=== PATIENT | female | born 1985 | race Caucasian/White ===

== ENCOUNTER 2018-12-22 16:22 | Inpatient (IN) ==
[2018-12-22] MEDS ORDERED: Ipratropium/Albuterol Neb 3 ML IH ONE (16:46)
--- NOTE | 2018-12-22 16:46 | Emergency Department Note ---
Disposition Clinical Impression: Community acquired pneumonia Qualifiers: Laterality: unspecified laterality Qualified Code(s): J18.9 - Pneumonia, unspecified organism Disposition: Admitted As Inpatient Condition: Good Forms: ED Satisfaction Letter Time of Disposition: 18:05 General Adult HPI - General Chief complaint: ED Shortness of Breath/Dyspnea Stated complaint: SOB Time Seen by Provider: 12/22/18 16:25 Source: EMS Limitations: no limitations Nursing Notes Reviewed: Yes Vital Signs Reviewed: Yes - History of Present Illness HPI Narrative: 33-year-old female smoker with history of asthma who presents the ED with shortness of breath. Patient states the cough has been going on for one week. The cough is productive. Developed shortness of breath last night. Has not changed over the past 24 hours. Rest makes it better movement makes it worse. Patient was seen 2 months ago treated for community-acquired pneumonia. Patient admits mild chest pain. admits chills and feels feverish. Denies weight change, vision change, abdominal pain, vomiting. She does have nausea is small amount of diarrhea this morning. Pain Scale: 6 - Related Data Home Medications Medication Instructions Recorded Confirmed Subutex 8 mg PO TID 06/26/15 02/29/16 clonazePAM [Klonopin] 0.5 mg PO TID 12/12/15 02/29/16 Citalopram [CeleXA] 40 mg PO DAILY 12/23/15 02/29/16 Doxepin [Sinequan] 50 mg PO HS 12/23/15 02/29/16 HydrOXYzine Pamoate [Vistaril] 03/02/18 TraZODone 03/02/18 Previous Rx's Medication Instructions Recorded Albuterol Sulfate [Albuterol 2 puff IH Q6HR PRN #1 hfa.aer.ad 08/16/16 Inhaler] Levofloxacin [Levaquin] 750 mg PO DAILY #5 tablet 08/16/16 Dicyclomine [Bentyl] 10 mg PO QID #40 capsule 07/25/17 metroNIDAZOLE [Metronidazole] 500 mg PO BID 7 Days #14 tablet 03/02/18 Meclizine [Antivert] 25 mg PO PRN PRN #10 tablet 03/21/18 Albuterol Sulfate [Albuterol 2 puff IH Q6H PRN #1 inhaler 09/22/18 Inhaler] Allergies Allergy/AdvReac Type Severity Reaction Status Date / Time buprenorphine [From Suboxone] AdvReac Vomiting Verified 03/20/18 23:40 Naloxone [From Suboxone] AdvReac Vomiting Verified 03/20/18 23:40 quetiapine [From Seroquel] AdvReac Seizure Verified 03/20/18 23:40 Constitutional: Reports: as per HPI Eyes: Reports: as per HPI ENT ED: Reports: as per HPI Cardiovascular: Reports: as per HPI Respiratory: Reports: as per HPI Gastrointestinal: Reports: as per HPI Genitourinary: Denies: urgency, dysuria Musculoskeletal: Denies: myalgia Neurological: Reports: headache Endocrine: Reports: fatigue Past Medical History - Past Medical History Medical history: Reports: asthma, seizures Surgical history: Reports: no surgical history, other Psychiatric history: Reports: anxiety, depression, other [employer] history: Reports: bilateral tubal ligation - Social History Smoking Status: Current every day smoker Smokeless Tobacco Status: No Alcohol use: Reports: none Drug use: Reports: opiates Physical Exam - General Limitations: no limitations General appearance: alert, in no apparent distress - Head Head exam: atraumatic, normocephalic, normal inspection - Eye Eye exam: Present: normal appearance, PERRL, EOMI - ENT ENT exam: normal exam, normal oropharynx, mucous membranes moist - Neck Neck exam: Present: normal inspection, full ROM, trachea midline - Chest Chest inspection: Present: normal inspection, symmetric chest wall rise - Respiratory Respiratory exam: Present: wheezes. Absent: respiratory distress, stridor - Cardiovascular Cardiovascular exam: Present: regular rate, normal rhythm, normal heart sounds - Abdominal Exam Abdominal exam: Present: soft, Non-Tender. Absent: tenderness, distention, guarding, rebound, rigidity - Extremities Exam Extremities exam: Present: normal inspection, full ROM. Absent: tenderness, pedal edema, calf tenderness - Psychiatric Psychiatric exam: Present: normal affect, normal mood - Skin Skin exam: Present: warm, dry, intact Course Vital Signs Temperature 98.2 F 12/22/18 16:26 Pulse Rate 106 12/22/18 16:26 Respiratory Rate 20 12/22/18 16:26 Blood Pressure 125/84 12/22/18 16:26 O2 Sat by Pulse Oximetry 90 12/22/18 16:26 Temperature 98.2 F 12/22/18 16:26 Pulse Rate 91 12/22/18 17:33 Respiratory Rate 20 12/22/18 17:33 Blood Pressure 129/67 12/22/18 17:33 O2 Sat by Pulse Oximetry 98 12/22/18 17:35 Oxygen Delivery Oxygen Delivery Aerosol Mask Medical Decision Making - [facility] Narrative Medical decision making narrative: Labs EKG, troponin, chest x-ray was ordered. For bronchitis versus pneumonia. Follow labs. duoneb was ordered. satting 95 on 2L. multifocal pneumonia noted on x-ray. Patient has not had any recent hospitalizations. Community acquired pneumonia. Start rochphen and zithromax. admit as npatient. Patient is requiring 7 L of O2. dyspnea on exeertion. solumedrol and duonebs orderd Dr. Henry accepts - Lab Data Result diagrams: 12/22/18 17:09 12/22/18 17:09 Lab Results 12/22/18 12/22/18 Range/Units 17:09 17:09 WBC 14.3 H (4.3-11.1) K/mcL RBC 4.26 (3.82-4.97) M/mcL Hgb 11.6 (11.5-15.4) g/dL Hct 36.0 (35.3-44.9) % MCV 84.5 (83.0-100.0) fL MCH 27.2 L (28.0-33.3) pg MCHC 32.2 (31.6-35.5) g/dL RDW 13.4 (11.5-14.5) % Plt Count 252 (140-400) K/mcL MPV 8.6 L (9.4-12.4) fL Immature Gran % 0.4 (0-4) % Seg Neutrophils % 81.1 % Lymphocytes % 13.8 % Monocytes % 4.1 % Eosinophils % 0.5 % Basophils % 0.1 % Neutrophils # 11.6 H (1.6-8.9) K/mcL Lymphocytes # 2.0 (0.6-4.6) K/mcL Monocytes # 0.6 (0.0-1.3) K/mcL Eosinophils # 0.1 (0.0-0.6) K/mcL Basophils # 0.0 (0.0-0.2) K/mcL Sodium 136 (136-145) mEq/L Potassium 4.0 (3.5-5.1) mEq/L Chloride 104 (98-107) mEq/L Carbon Dioxide 24 (23-29) mEq/L BUN 7 (6-20) mg/dL Creatinine 0.72 (0.60-1.20) mg/dL Est GFR ( Amer) > 60 (> 60) Est GFR (Non-Af Amer) > 60 (> 60) BUN/Creatinine Ratio 10 (6-26) Glucose 118 H (70-105) mg/dL Calculated Osmolality 281 (280-300) Calcium 9.5 (8.6-10.3) mg/dL Troponin I < 0.03 (< 0.04) ng/mL
[2018-12-22 17:24] LABS: Basophils % 0.1 %; Eosinophils # 0.1 K/mcL (0.0-0.6); Eosinophils % 0.5 %; Hemoglobin 11.6 g/dL (11.5-15.4); Immature Granulocytes % 0.4 % (0-4); Lymphocytes % 13.8 %; Mean Corpuscular HGB Conc 32.2 g/dL (31.6-35.5); Mean Corpuscular Hemoglobin 27.2 pg (28.0-33.3); Mean Corpuscular Volume 84.5 fL (83.0-100.0); Mean Platelet Volume 8.6 fL (9.4-12.4); Monocytes # 0.6 K/mcL (0.0-1.3); Monocytes % 4.1 %; Neutrophils # 11.6 K/mcL (1.6-8.9); Platelet Count 252 K/mcL (140-400); Red Blood Count 4.26 M/mcL (3.82-4.97); Red Cell Distribution Width 13.4 % (11.5-14.5); Segmented Neutrophils % 81.1 %
[2018-12-22 17:44] LABS: BUN/Creatinine Ratio 10 (6-26); Blood Urea Nitrogen 7 mg/dL (6-20); Calcium 9.5 mg/dL (8.6-10.3); Carbon Dioxide 24 mEq/L (23-29); Chloride 104 mEq/L (98-107); Glucose 118 mg/dL (70-105); Osmolality,Calculated 281 (280-300); Sodium 136 mEq/L (136-145); eGFR For Non-African Americans > 60 (> 60)
[2018-12-22 17:45] LABS: Troponin I < 0.03 ng/mL (< 0.04)
[2018-12-22] MEDS ORDERED: methylPREDNISolone 125 MG/2 ML VIAL IVP ONE (18:12)
[2018-12-22] MEDS ORDERED: Naloxone 0.4 MG/ML INJ IVP PRN (18:14)
[2018-12-22] MEDS ORDERED: Ipratropium/Albuterol Neb 3 ML IH SCH (18:15)
--- NOTE | 2018-12-22 18:19 | Emergency Department Note ---
Disposition Clinical Impression: Community acquired pneumonia Qualifiers: Laterality: unspecified laterality Qualified Code(s): J18.9 - Pneumonia, unspecified organism Disposition: Admitted As Inpatient Condition: Good Forms: ED Satisfaction Letter General Adult HPI - General Chief complaint: ED Shortness of Breath/Dyspnea Stated complaint: SOB Time Seen by Provider: 12/22/18 16:25 Source: EMS Limitations: no limitations - History of Present Illness Pain Scale: 6 - Related Data Home Medications Medication Instructions Recorded Confirmed Subutex 8 mg PO TID 06/26/15 02/29/16 clonazePAM [Klonopin] 0.5 mg PO TID 12/12/15 02/29/16 Citalopram [CeleXA] 40 mg PO DAILY 12/23/15 02/29/16 Doxepin [Sinequan] 50 mg PO HS 12/23/15 02/29/16 HydrOXYzine Pamoate [Vistaril] 03/02/18 TraZODone 03/02/18 Previous Rx's Medication Instructions Recorded Albuterol Sulfate [Albuterol 2 puff IH Q6HR PRN #1 hfa.aer.ad 08/16/16 Inhaler] Levofloxacin [Levaquin] 750 mg PO DAILY #5 tablet 08/16/16 Dicyclomine [Bentyl] 10 mg PO QID #40 capsule 07/25/17 metroNIDAZOLE [Metronidazole] 500 mg PO BID 7 Days #14 tablet 03/02/18 Meclizine [Antivert] 25 mg PO PRN PRN #10 tablet 03/21/18 Albuterol Sulfate [Albuterol 2 puff IH Q6H PRN #1 inhaler 09/22/18 Inhaler] Allergies Allergy/AdvReac Type Severity Reaction Status Date / Time buprenorphine [From Suboxone] AdvReac Vomiting Verified 03/20/18 23:40 Naloxone [From Suboxone] AdvReac Vomiting Verified 03/20/18 23:40 quetiapine [From Seroquel] AdvReac Seizure Verified 03/20/18 23:40 Constitutional: Reports: as per HPI Eyes: Reports: as per HPI ENT ED: Reports: as per HPI Cardiovascular: Reports: as per HPI Respiratory: Reports: as per HPI Gastrointestinal: Reports: as per HPI Genitourinary: Denies: urgency, dysuria Musculoskeletal: Denies: myalgia Neurological: Reports: headache Endocrine: Reports: fatigue Past Medical History - Past Medical History Medical history: Reports: asthma, seizures Surgical history: Reports: no surgical history, other Psychiatric history: Reports: anxiety, depression, other [employer]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 - Social History Smoking Status: Current every day smoker Smokeless Tobacco Status: No Alcohol use: Reports: none Drug use: Reports: opiates Physical Exam - General Limitations: no limitations General appearance: alert, in no apparent distress Course Vital Signs Temperature 98.2 F 12/22/18 16:26 Pulse Rate 106 12/22/18 16:26 Respiratory Rate 20 12/22/18 16:26 Blood Pressure 125/84 12/22/18 16:26 O2 Sat by Pulse Oximetry 90 12/22/18 16:26 Temperature 98.2 F 12/22/18 16:26 Pulse Rate 91 12/22/18 17:33 Respiratory Rate 20 12/22/18 17:33 Blood Pressure 129/67 12/22/18 17:33 O2 Sat by Pulse Oximetry 98 12/22/18 17:35 Oxygen Delivery Oxygen Delivery Aerosol Mask Medical Decision Making - Lab Data Result diagrams: 12/22/18 17:09 12/22/18 17:09 Lab Results 12/22/18 12/22/18 Range/Units 17:09 17:09 WBC 14.3 H (4.3-11.1) K/mcL RBC 4.26 (3.82-4.97) M/mcL Hgb 11.6 (11.5-15.4) g/dL Hct 36.0 (35.3-44.9) % MCV 84.5 (83.0-100.0) fL MCH 27.2 L (28.0-33.3) pg MCHC 32.2 (31.6-35.5) g/dL RDW 13.4 (11.5-14.5) % Plt Count 252 (140-400) K/mcL MPV 8.6 L (9.4-12.4) fL Immature Gran % 0.4 (0-4) % Seg Neutrophils % 81.1 % Lymphocytes % 13.8 % Monocytes % 4.1 % Eosinophils % 0.5 % Basophils % 0.1 % Neutrophils # 11.6 H (1.6-8.9) K/mcL Lymphocytes # 2.0 (0.6-4.6) K/mcL Monocytes # 0.6 (0.0-1.3) K/mcL Eosinophils # 0.1 (0.0-0.6) K/mcL Basophils # 0.0 (0.0-0.2) K/mcL Sodium 136 (136-145) mEq/L Potassium 4.0 (3.5-5.1) mEq/L Chloride 104 (98-107) mEq/L Carbon Dioxide 24 (23-29) mEq/L BUN 7 (6-20) mg/dL Creatinine 0.72 (0.60-1.20) mg/dL Est GFR ( Amer) > 60 (> 60) Est GFR (Non-Af Amer) > 60 (> 60) BUN/Creatinine Ratio 10 (6-26) Glucose 118 H (70-105) mg/dL Calculated Osmolality 281 (280-300) Calcium 9.5 (8.6-10.3) mg/dL Troponin I < 0.03 (< 0.04) ng/mL Attestation Statement - Attestation Attestation: I examined this patient and my medical decision-making was reviewed with the Resident Physician. I agree with the documented findings, disposition and treatment plan as described except to the extent set forth below. 33 year old female presnts to the ED with complanits of dyspnea and has a history of asthma and grimes snot wear supplemental oxygen at home. Ptinet states that she has been coughing and had pnuemonia in august and that it feels better. PAtine is now requiring 2LNC and appearsto have multifocal pneumonia. We will start IV ABX and then admit to medicine.
[2018-12-22 18:40] LABS: ABG Base Excess 0 mEq/L (-2 to 3); ABG HCO3 24 mEq/L (21-27); ABG Oxygen Saturation 92 % (95-98); ABG PCO2 35 mmHg (35-45); ABG PH 7.44 pH Units (7.32-7.45); ABG PO2 60 mmHg (85-104); ABG TCO2 25 mEq/L (20-26)
--- NOTE | 2018-12-22 18:55 | Internal Med History&Physical ---
Date of Encounter: 12/22/18 Time of Encounter: 18:00 Internal Medicine - H&P: HPI Chief complaint: Coughing, shortness of breath and wheezing for 1 week duration History of present illness: Ms. Nguyen is a 33 year old female with pmh of asthma presenting with complaints of coughing , shortness of breath and wheezing for 1 week duration. Patient says she suddenly began to feel short of breath particularly with exertion about a week ago, and symptoms progressed to include wheezing and cough productive of brown phlegm in the last 3 days. She admits to occasional fevers and chills. Denies any nausea, vomiting or abdominal pain. she says she used her inhalers at home with no relief. With continued worsening of her respiratory symptoms she decided to come in to the ER. In the Er, she was given antibiotics and a breathing treatment. Chest xray showed multifocal pneumonia and she is being admitted for further management Past Med Surg Social Fam HX - Past Medical History Medical history: asthma, seizures Additional medical history: hep c, history of IVDU Psychiatric history: anxiety, depression, other - Past Surgical History Surgical History: no surgical history, other Additional surgical history: tubal ligation - Social History Smoking Status: Current every day smoker Smokeless Tobacco Status: No Alcohol use: none Drug use: opiates Internal Medicine - H&P: Meds Subutex 8 mg PO TID 06/26/15 [History] HydrOXYzine Pamoate [Vistaril] 03/02/18 [History] Albuterol Sulfate [Albuterol Inhaler] 2 puff IH Q6H PRN #1 inhaler 09/22/18 [Rx] Allergy/AdvReac Type Severity Reaction Status Date / Time buprenorphine [From Suboxone] AdvReac Vomiting Verified 03/20/18 23:40 Naloxone [From Suboxone] AdvReac Vomiting Verified 03/20/18 23:40 quetiapine [From Seroquel] AdvReac Seizure Verified 03/20/18 23:40 All Systems PM: A 10-system review of systems was performed and is negative for pertinent findings except as documented above in the HPI. - Constitutional Constitutional: no chills, no fever(s), no night sweats - EENT Eyes: no change in vision, no discharge, no pain, no photophobia Ears: no ear discharge, no ear pain, no tinnitus Nose, mouth and throat: no dysphagia, no nasal discharge, no neck pain, no sore throat - Cardiovascular Cardiovascular ROS IM: dyspnea, no chest pain, no diaphoresis, no lightheadedness, no palpitations, no syncope - Respiratory Respiratory: cough, dyspnea, wheezing, no excessive phlegm production - Gastrointestinal Gastrointestinal: no abdominal pain, no diarrhea, no hematemesis, no hematochezia, no melena, no nausea, no vomiting - Genitourinary Genitourinary: no change in urinary stream, no dysuria, no flank pain, no hematuria - Musculoskeletal Musculoskeletal ROS IM: no numbness, no tingling - Integumentary Integumentary IM: no rash, no unusual bruising - Neurological Neurological ROS: no confusion, no convulsions, no focal weakness, no numbness, no tingling, no tremor(s) - Hematologic/Lymphatic Hematologic/Lymphatic: no easy bruising - Constitutional Vitals: Temp Pulse Resp BP Pulse Ox 98.2 F 91 20 129/67 98 12/22/18 16:26 12/22/18 17:33 12/22/18 17:33 12/22/18 17:33 12/22/18 17:35 Exam: mild respiratory distress - Head Head exam: Present: atraumatic, normocephalic - Eye Eye exam: Present: PERRL, conjuntiva pink, sclera anicteric Pupils: Present: PERRL - Neck Neck exam general surgery: Present: supple, trachea midline. Absent: lymphadenopathy - Respiratory Respiratory exam: Present: wheezes. Absent: accessory muscle use, rales, rhonchi - Cardiovascular Cardiovascular exam: Present: RRR, +S1, +S2. Absent: diastolic murmur, gallop, rubs, systolic murmur - GI/Abdominal GI/Abdominal exam: Present: normal bowel sounds, soft, no peritoneal signs. Absent: distended, tenderness - Extremities Exam Extremities exam: Present: warm, radial pulses palpable and symmetrical. Absent: calf tenderness, cyanotic, pedal edema - Neurological Exam Neurological exam: Present: CN II-XII intact, oriented X3, no focal deficits. Absent: pronater drift, facial droop, speech deficit - Skin Skin exam: Present: dry, intact Internal Med - H&P Results - Labs CBC & Chem 7: 12/22/18 17:09 12/22/18 17:09 Labs: Short CBC 12/22/18 Range/Units 17:09 WBC 14.3 H (4.3-11.1) K/mcL Hgb 11.6 (11.5-15.4) g/dL Hct 36.0 (35.3-44.9) % Plt Count 252 (140-400) K/mcL Neutrophils # 11.6 H (1.6-8.9) K/mcL BMP 12/22/18 17:09 Sodium 136 Potassium 4.0 Chloride 104 Carbon Dioxide 24 BUN 7 Creatinine 0.72 Glucose 118 H Calcium 9.5 Cardiac Enzymes 12/22/18 Range/Units 17:09 Troponin I < 0.03 (< 0.04) ng/mL - ABG Interpretation ABG results: 12/22/18 18:37 ABG pH 7.44 ABG pCO2 35 ABG pO2 60 L ABG HCO3 24 ABG Total CO2 25 ABG O2 Saturation 92 L ABG Base Excess 0 - Impressions ITS Impressions Chest X-Ray 12/22/18 16:41 IMPRESSION: Bilateral parahilar airspace disease suggesting a multifocal pneumonia D/ / Cristian Khan MD / Cristian Khan MD Interpreting Provider: Cristian Khan MD - Assessment and plan (1) Sepsis Current Visit: Yes Status: Acute Assessment and plan: Pt comes in with multifocal pneumonia and a WBC of 14 with tachycardia Will obtain blood cultures, urine legionella and streptococcal antigen. Start on ceftriaxone and azithromycin Qualifiers: Qualified Code(s): A41.9 - Sepsis, unspecified organism (2) Multifocal pneumonia Current Visit: Yes Status: Acute Assessment and plan: Start on ceftriaxone and azithromycin (3) Acute asthma exacerbation Current Visit: Yes Status: Acute Assessment and plan: Pt has severe asthma exacerbation with wheezing and oxygen sats of 90% on arrival Start on round the clock nebs and solumedrol Qualifiers: Asthma severity: mild Asthma persistence: intermittent Qualified Code(s): J45.21 - Mild intermittent asthma with (acute) exacerbation (4) DVT prophylaxis Current Visit: Yes Status: Acute Assessment and plan: SCDs - Time Spent With Patient Total time spent is greater than 50% in coordination of care (as documented) at patient's floor/unit and/or counseling patient:
[2018-12-22] MEDS ORDERED: Azithromycin 500 MG in D5% in Water 250 ML IVPB SCH (19:00)
[2018-12-22] MEDS ORDERED: cefTRIAXone 1,000 MG in Water for inj. (sterile) 20 ML 10 ML IVP SCH (19:00)
[2018-12-22] MEDS: Ipratropium/Albuterol Neb 3 ML IH SCH (20:14)
[2018-12-22] MEDS: Budesonide/Formoterol 80/4.5 MDI IH SCH (20:15)
[2018-12-22] MEDS: Azithromycin 500 MG in D5% in Water 250 ML IVPB SCH (22:00)
[2018-12-22] MEDS: cefTRIAXone 1,000 MG in Water for inj. (sterile) 20 ML 10 ML IVP SCH (22:00)
[2018-12-22] MEDS: clonazePAM 0.5 MG TABLET PO SCH (22:01)
[2018-12-23] MEDS: Ipratropium/Albuterol Neb 3 ML IH SCH ×6 (00:19→20:01)
[2018-12-23] MEDS: Budesonide/Formoterol 80/4.5 MDI IH SCH ×2 (07:41→20:01)
[2018-12-23 08:23] LABS: Basophils % 0.1 %; Hematocrit 41.6 % (35.3-44.9); Hemoglobin 12.7 g/dL (11.5-15.4); Immature Granulocytes % 0.5 % (0-4); Lymphocytes # 1.1 K/mcL (0.6-4.6); Lymphocytes % 7.5 %; Mean Corpuscular HGB Conc 30.5 g/dL (31.6-35.5); Mean Corpuscular Hemoglobin 27.1 pg (28.0-33.3); Mean Corpuscular Volume 88.7 fL (83.0-100.0); Mean Platelet Volume 9.9 fL (9.4-12.4); Monocytes # 0.3 K/mcL (0.0-1.3); Monocytes % 1.7 %; Platelet Count 186 K/mcL (140-400); Red Blood Count 4.69 M/mcL (3.82-4.97); Red Cell Distribution Width 13.5 % (11.5-14.5); Segmented Neutrophils % 90.2 %
[2018-12-23 08:27] LABS: Neutrophils # 13.4 K/mcL (1.6-8.9)
--- NOTE | 2018-12-23 09:08 | Internal Med Progress Note ---
Hospitalist Progress Note - Encounter Date of Encounter: 12/23/18 Time of Encounter: 11:00 - Subjective Interval History: Patient is a 33-year-old female with past medical history significant for asthma who presented with shortness of breath and found to have acute hypoxic respiratory failure with asthma exacerbation secondary to multifocal pneumonia Patient was also septic on admission which has now resolved. Patient this morning still requiring 4 L of nasal cannula oxygenation - Exam Vitals: Temp Pulse Resp BP Pulse Ox 98.3 F 60 16 121/69 97 12/23/18 07:15 12/23/18 07:15 12/23/18 07:41 12/23/18 07:15 12/23/18 07:41 Exam: Gen.: Nonacute distress, alert and oriented 3 ENT: Mucosal membranes moist Respiratory: Bilateral expiratory wheezes with decreased air flow Cardiovascular: Normal S1 and S2 regular rate rhythm no murmurs rubs or gallops Abdomen: Soft, nontender and nondistended with positive bowel sounds Extremities: No lower extremity edema Skin: Normal color - Assessment and Plan (1) Acute respiratory failure with hypoxia Current Visit: Yes Status: Acute Assessment and Plan: Patient found to have acute hypoxic respiratory failure with a ABG that revealed a PaO2 of 60 on admission Secondary due to multifocal pneumonia with asthma exacerbation; management as below Patient requiring 4 L of oxygenation this morning Will wean O2 as tolerates (2) Multifocal pneumonia Current Visit: Yes Status: Acute Assessment and Plan: Chest x-ray showed bibasilar perihilar airspace disease suggestive of multifocal pneumonia Leukocytosis without much improvement this morning the patient is on steroids Respiratory panel pending Continue day 2 of IV ceftriaxone/azithromycin (3) Acute asthma exacerbation Current Visit: Yes Status: Acute Assessment and Plan: Continue dual nebs and IV Solu-Medrol Also continuing home meds of Symbicort (4) Sepsis Current Visit: Yes Status: Resolved Assessment and Plan: Resolved Patient no longer tachycardic although with leukocytosis in the setting of steroid treatment Continue to monitor (5) Mood disorder Current Visit: Yes Status: Acute Assessment and Plan: Continue home medications DVT Prophylaxis: SCDs - Time Spent with Patient Total time spent is greater than 50% in coordination of care (as documented) at patient's floor/unit and/or counseling patient: Internal Medicine: Result - Labs CBC & Chem 7: 12/23/18 08:13 12/22/18 17:09 Labs: Short CBC 12/22/18 12/23/18 Range/Units 17:09 08:13 WBC 14.3 H 14.9 H (4.3-11.1) K/mcL Hgb 11.6 12.7 (11.5-15.4) g/dL Hct 36.0 41.6 (35.3-44.9) % Plt Count 252 186 (140-400) K/mcL Neutrophils # 11.6 H 13.4 H (1.6-8.9) K/mcL BMP 12/22/18 17:09 Sodium 136 Potassium 4.0 Chloride 104 Carbon Dioxide 24 BUN 7 Creatinine 0.72 Glucose 118 H Calcium 9.5 Cardiac Enzymes 12/22/18 Range/Units 17:09 Troponin I < 0.03 (< 0.04) ng/mL - ABG Interpretation ABG results: ABG ABG pH 7.44 pH Units (7.32-7.45) 12/22/18 18:37 ABG pCO2 35 mmHg (35-45) 12/22/18 18:37 ABG pO2 60 mmHg (85-104) L 12/22/18 18:37 ABG O2 Saturation 92 % (95-98) L 12/22/18 18:37 - Impressions Impressions Chest X-Ray 12/22/18 16:41 IMPRESSION: Bilateral parahilar airspace disease suggesting a multifocal pneumonia D/ / Cristian Khan MD / Cristian Khan MD Interpreting Provider: Cristian Khan MD Consult Discharge Plan - Plan Referrals: NONE,PCP [Primary Care Provider] - (3) Acute asthma exacerbation Qualifiers: Asthma severity: mild Asthma persistence: intermittent Qualified Code(s): J45.21 - Mild intermittent asthma with (acute) exacerbation (4) Sepsis Qualifiers: Qualified Code(s): A41.9 - Sepsis, unspecified organism
[2018-12-23] MEDS: clonazePAM 0.5 MG TABLET PO SCH ×3 (09:10→20:18)
[2018-12-23] MEDS: MethylPREDNISolone 40 MG/ML VIAL IVP SCH ×3 (09:11→17:29)
[2018-12-23 17:15] LABS: Acinetobacter baumannii by PCR Not Detected (Not Detect); Candida albicans by PCR Not Detected (Not Detect); Candida glabrata by PCR Not Detected (Not Detect); Candida krusei by PCR Not Detected (Not Detect); Candida parapsilosis by PCR Not Detected (Not Detect); Candida tropicalis by PCR Not Detected (Not Detect); Enterobacter cloacae Cmplx PCR Not Detected (Not Detect); Enterobacteriaceae by PCR Not Detected (Not Detect); Enterococcus by PCR Not Detected (Not Detect); Escherichia coli by PCR Not Detected (Not Detect); Klebsiella oxytoca by PCR Not Detected (Not Detect); Klebsiella pneumoniae by PCR Not Detected (Not Detect); Proteus by PCR Not Detected (Not Detect); Pseudomonas aeruginosa by PCR Not Detected (Not Detect); Serratia marcescens by PCR Not Detected (Not Detect); Staphylococcus aureus by PCR Not Detected (Not Detect); Staphylococcus by PCR Not Detected (Not Detect); Streptococcus agalactiae(B)PCR Not Detected (Not Detect); Streptococcus by PCR DETECTED (Not Detect); Streptococcus pneumoniae PCR Not Detected (Not Detect); Streptococcus pyogenes (A) PCR Not Detected (Not Detect); blaKPC Carbapenem-Resist Gene Not Detected (Not Detect); vanA/B Vancomycin-Resist Genes Not Detected (Not Detect)
[2018-12-23] MEDS ORDERED: hydrOXYzine pamoate 25 MG CAPSULE PO PRN (17:20)
[2018-12-23] MEDS: Ondansetron 4 MG/2 ML VIAL IVP PRN (17:29)
[2018-12-23 18:01] LABS: BUN/Creatinine Ratio 20 (6-26); Blood Urea Nitrogen 14 mg/dL (6-20); Calcium 9.1 mg/dL (8.6-10.3); Carbon Dioxide 21 mEq/L (23-29); Chloride 107 mEq/L (98-107); Glucose 136 mg/dL (70-105); Magnesium 2.2 mg/dL (1.6-2.6); Osmolality,Calculated 285 (280-300); Phosphorous 3.8 mg/dL (2.7-4.5); Potassium 4.7 mEq/L (3.5-5.1); Sodium 136 mEq/L (136-145); eGFR For Non-African Americans > 60 (> 60)
[2018-12-23] MEDS: Acetaminophen 325 MG TABLET PO PRN (19:00)
[2018-12-23] MEDS: cefTRIAXone 1,000 MG in Water for inj. (sterile) 20 ML 10 ML IVP SCH (19:01)
[2018-12-23] MEDS: Azithromycin 500 MG in D5% in Water 250 ML IVPB SCH (19:02)
[2018-12-23] MEDS: *HR* Buprenorphine HCl 8 MG TAB.SUBL SL SCH (20:18)
[2018-12-23 20:57] LABS: Amphetamine Screen,Urine Negative ng/mL (Cutoff=1000); Barbiturate Screen,Urine Negative ng/mL (Cutoff=200); Benzodiazepines Screen,Urine Negative ng/mL (Cutoff=200); Cannabinoid Screen,Urine Negative ng/mL (Cutoff = 50); Cocaine Screen,Urine Negative ng/mL (Cutoff= 300); Opiate Screen,Urine Negative ng/mL (Cutoff=300); Phencyclidine Screen,Urine Negative ng/mL (Cutoff=25)
[2018-12-24] MEDS: MethylPREDNISolone 40 MG/ML VIAL IVP SCH ×4 (00:19→23:47)
[2018-12-24] MEDS: Ipratropium/Albuterol Neb 3 ML IH SCH ×7 (00:30→23:55)
[2018-12-24] MEDS: Acetaminophen 325 MG TABLET PO PRN (05:07)
[2018-12-24] MEDS: Budesonide/Formoterol 80/4.5 MDI IH SCH ×2 (07:39→20:48)
--- NOTE | 2018-12-24 08:01 | Internal Med Progress Note ---
Hospitalist Progress Note - Encounter Date of Encounter: 12/24/18 Time of Encounter: 11:00 - Subjective Interval History: Patient is a 33-year-old female with past medical history significant for asthma who presented with shortness of breath and found to have acute hypoxic respiratory failure with asthma exacerbation secondary to multifocal pneumonia Patient was also septic on admission which has now resolved. Patient was requiring 4 L of nasal cannula yesterday but today requiring 2 L. Patient was also found to have bacteremia with Streptococcus and was found to have Streptococcus on respiratory panel - Exam Vitals: Temp Pulse Resp BP Pulse Ox 98.1 F 80 16 108/63 94 12/24/18 07:08 12/24/18 07:08 12/24/18 07:41 12/24/18 07:08 12/24/18 07:41 Exam: Gen.: Nonacute distress, alert and oriented 3 ENT: Mucosal membranes moist Respiratory: Bilateral expiratory wheezes with decreased air flow Cardiovascular: Normal S1 and S2 regular rate rhythm no murmurs rubs or gallops Abdomen: Soft, nontender and nondistended with positive bowel sounds Extremities: No lower extremity edema Skin: Normal color - Assessment and Plan (1) Streptococcal pneumonia Current Visit: Yes Status: Acute Assessment and Plan: Chest x-ray showed bibasilar perihilar airspace disease suggestive of multifocal pneumonia She found to have Streptococcus on respiratory panel Continue day 3 of IV ceftriaxone/azithromycin for multifocal streptococcal pneumonia (2) Streptococcal bacteremia Current Visit: Yes Status: Acute Assessment and Plan: Patient's blood cultures positive for Streptococcus canary to streptococcal pneumonia above Management as above Echocardiogram has been ordered and we will repeat blood cultures. (3) Acute respiratory failure with hypoxia Current Visit: Yes Status: Acute Assessment and Plan: Secondary to streptococcus pneumonia Patient requiring less oxygenation this morning at 2 L from 4 L yesterday Will continue to wean O2 as tolerates (4) Acute asthma exacerbation Current Visit: Yes Status: Acute Assessment and Plan: Asthma exacerbation secondary to the above Continue dual nebs and IV Solu-Medrol Also continuing home meds of Symbicort (5) Sepsis Current Visit: Yes Status: Resolved Assessment and Plan: Resolved Patient no longer tachycardic although with leukocytosis in the setting of steroid treatment Continue to monitor (6) Mood disorder Current Visit: Yes Status: Acute Assessment and Plan: Continue home medications - Time Spent with Patient Total time spent is greater than 50% in coordination of care (as documented) at patient's floor/unit and/or counseling patient: Internal Medicine: Result - Labs CBC & Chem 7: 12/24/18 09:03 12/24/18 09:03 Labs: Short CBC 12/23/18 Range/Units 08:13 WBC 14.9 H (4.3-11.1) K/mcL Hgb 12.7 (11.5-15.4) g/dL Hct 41.6 (35.3-44.9) % Plt Count 186 (140-400) K/mcL Neutrophils # 13.4 H (1.6-8.9) K/mcL BMP 12/23/18 17:26 Sodium 136 Potassium 4.7 Chloride 107 Carbon Dioxide 21 L BUN 14 Creatinine 0.69 Glucose 136 H Calcium 9.1 - ABG Interpretation ABG results: ABG ABG pH 7.44 pH Units (7.32-7.45) 12/22/18 18:37 ABG pCO2 35 mmHg (35-45) 12/22/18 18:37 ABG pO2 60 mmHg (85-104) L 12/22/18 18:37 ABG O2 Saturation 92 % (95-98) L 12/22/18 18:37 Consult Discharge Plan - Plan Referrals: NONE,PCP [Primary Care Provider] - (4) Acute asthma exacerbation Qualifiers: Asthma severity: mild Asthma persistence: intermittent Qualified Code(s): J45.21 - Mild intermittent asthma with (acute) exacerbation (5) Sepsis Qualifiers: Qualified Code(s): A41.9 - Sepsis, unspecified organism
[2018-12-24] MEDS: clonazePAM 0.5 MG TABLET PO SCH ×3 (08:33→20:17)
[2018-12-24] MEDS: *HR* Buprenorphine HCl 8 MG TAB.SUBL SL SCH ×2 (08:33→20:17)
[2018-12-24 09:46] LABS: Basophils % 0.1 %; Hematocrit 33.8 % (35.3-44.9); Immature Granulocytes % 1.1 % (0-4); Lymphocytes # 2.1 K/mcL (0.6-4.6); Lymphocytes % 9.5 %; Mean Corpuscular Hemoglobin 27.2 pg (28.0-33.3); Mean Corpuscular Volume 85.1 fL (83.0-100.0); Monocytes % 4.4 %; Neutrophils # 18.5 K/mcL (1.6-8.9); Platelet Count 321 K/mcL (140-400); Red Blood Count 3.97 M/mcL (3.82-4.97); Red Cell Distribution Width 13.7 % (11.5-14.5); Segmented Neutrophils % 84.9 %
[2018-12-24 10:07] LABS: BUN/Creatinine Ratio 28 (6-26); Blood Urea Nitrogen 19 mg/dL (6-20); Carbon Dioxide 21 mEq/L (23-29); Chloride 105 mEq/L (98-107); Glucose 127 mg/dL (70-105); Osmolality,Calculated 286 (280-300); Potassium 4.2 mEq/L (3.5-5.1); Sodium 136 mEq/L (136-145); eGFR For Non-African Americans > 60 (> 60)
[2018-12-24 10:34] LABS: Hemoglobin 10.8 g/dL (11.5-15.4)
[2018-12-24 10:52] LABS: Adenovirus Not Detected (Not Detect); Bordetella Pertussis Not Detected (Not Detect); Chlamydophila pneumoniae Not Detected (Not Detect); Coronavirus 229E Not Detected (Not Detect); Coronavirus HKU1 Not Detected (Not Detect); Coronavirus NL63 Not Detected (Not Detect); Coronavirus OC43 Not Detected (Not Detect); Human Metapneumovirus Not Detected (Not Detect); Human Rhinovirus/Enterovirus Not Detected (Not Detect); Influenza A Subtype 2009 H1 Not Detected (Not Detect); Influenza A Untypeable Not Detected (Not Detect); Influenza B Not Detected (Not Detect); Mycoplasma pneumoniae Not Detected (Not Detect); Parainfluenza Virus 1 Not Detected (Not Detect); Parainfluenza Virus 2 Not Detected (Not Detect); Parainfluenza Virus 3 Not Detected (Not Detect); Parainfluenza Virus 4 Not Detected (Not Detect); Respiratory Syncytial Virus Not Detected (Not Detect)
[2018-12-24] MEDS: Ondansetron 4 MG/2 ML VIAL IVP PRN (20:16)
[2018-12-24] MEDS: Azithromycin 500 MG in D5% in Water 250 ML IVPB SCH (20:17)
[2018-12-24] MEDS: cefTRIAXone 2,000 MG in Water for inj. (sterile) 20 ML 20 ML IVP SCH (20:18)
[2018-12-24] MEDS: Nicotine 21 MG PATCH.TD24 TD SCH (20:19)
[2018-12-25] MEDS: Preparation H Ointment 30 GM TUBE RC SCH ×3 (02:59→20:04)
[2018-12-25] MEDS: Ipratropium/Albuterol Neb 3 ML IH SCH ×6 (03:55→23:44)
[2018-12-25] MEDS: Budesonide/Formoterol 80/4.5 MDI IH SCH ×2 (07:53→20:38)
[2018-12-25] MEDS: MethylPREDNISolone 40 MG/ML VIAL IVP SCH ×3 (08:35→23:00)
[2018-12-25] MEDS: clonazePAM 0.5 MG TABLET PO SCH ×3 (08:35→20:03)
[2018-12-25] MEDS: *HR* Buprenorphine HCl 8 MG TAB.SUBL SL SCH ×2 (08:35→20:02)
[2018-12-25] MEDS: Nicotine 21 MG PATCH.TD24 TD SCH (08:37)
[2018-12-25 11:18] LABS: Basophils % 0.1 %; Hematocrit 34.2 % (35.3-44.9); Hemoglobin 10.9 g/dL (11.5-15.4); Immature Granulocytes % 1.3 % (0-4); Lymphocytes # 2.2 K/mcL (0.6-4.6); Lymphocytes % 12.4 %; Mean Corpuscular HGB Conc 31.9 g/dL (31.6-35.5); Mean Corpuscular Hemoglobin 27.5 pg (28.0-33.3); Mean Corpuscular Volume 86.1 fL (83.0-100.0); Mean Platelet Volume 8.6 fL (9.4-12.4); Monocytes # 0.6 K/mcL (0.0-1.3); Monocytes % 3.6 %; Neutrophils # 14.4 K/mcL (1.6-8.9); Platelet Count 302 K/mcL (140-400); Red Blood Count 3.97 M/mcL (3.82-4.97); Red Cell Distribution Width 13.4 % (11.5-14.5); Segmented Neutrophils % 82.6 %
--- NOTE | 2018-12-25 11:23 | Internal Med Progress Note ---
Hospitalist Progress Note - Encounter Date of Encounter: 12/25/18 Time of Encounter: 11:00 - Subjective Interval History: Patient is a 33-year-old female with past medical history significant for asthma who presented with shortness of breath and found to have acute hypoxic respiratory failure with asthma exacerbation secondary to multifocal pneumonia Patient was also septic on admission which has now resolved. Patient was requiring 4 L of nasal cannula on 12/23/18 and has required 2 L of nasal cannula for the last 2 days Patient was also found to have bacteremia with Streptococcus and was found to have Streptococcus on respiratory panel - Exam Vitals: Temp Pulse Resp BP Pulse Ox 98.1 F 58 16 110/56 93 12/25/18 07:18 12/25/18 07:18 12/25/18 11:16 12/25/18 07:18 12/25/18 11:16 Exam: Gen.: Nonacute distress, alert and oriented 3 ENT: Mucosal membranes moist Respiratory: Bilateral expiratory wheezes with decreased air flow Cardiovascular: Normal S1 and S2 regular rate rhythm no murmurs rubs or gallops Abdomen: Soft, nontender and nondistended with positive bowel sounds Extremities: No lower extremity edema Skin: Normal color - Assessment and Plan (1) Streptococcal pneumonia Current Visit: Yes Status: Acute Assessment and Plan: Chest x-ray showed bibasilar perihilar airspace disease suggestive of multifocal pneumonia Patient was found to have Streptococcus on respiratory panel Continue day 4 of IV ceftriaxone for multifocal streptococcal pneumonia (2) Streptococcal bacteremia Current Visit: Yes Status: Acute Assessment and Plan: Patient's blood cultures positive for Streptococcus canary to streptococcal pneumonia above Management as above Echocardiogram did not show any evidence of gross valvular vegetation Repeat blood cultures ordered (3) Acute respiratory failure with hypoxia Current Visit: Yes Status: Acute Assessment and Plan: Secondary to streptococcus pneumonia Patient continues to require supplemental oxygenation at 2 L Will continue to wean O2 as tolerates (4) Acute asthma exacerbation Current Visit: Yes Status: Acute Assessment and Plan: Asthma exacerbation secondary to the above Continue dual nebs and IV Solu-Medrol Also continuing home meds of Symbicort (5) Sepsis Current Visit: Yes Status: Resolved Assessment and Plan: Resolved Patient no longer tachycardic although with leukocytosis in the setting of steroid treatment Continue to monitor (6) Mood disorder Current Visit: Yes Status: Acute Assessment and Plan: Continue home medications DVT Prophylaxis: SCDs - Time Spent with Patient Total time spent is greater than 50% in coordination of care (as documented) at patient's floor/unit and/or counseling patient: Internal Medicine: Result - Labs CBC & Chem 7: 12/25/18 10:51 12/25/18 13:33 Labs: Short CBC 12/25/18 Range/Units 10:51 WBC 17.4 H (4.3-11.1) K/mcL Hgb 10.9 L (11.5-15.4) g/dL Hct 34.2 L (35.3-44.9) % Plt Count 302 (140-400) K/mcL Neutrophils # 14.4 H (1.6-8.9) K/mcL - ABG Interpretation ABG results: ABG ABG pH 7.44 pH Units (7.32-7.45) 12/22/18 18:37 ABG pCO2 35 mmHg (35-45) 12/22/18 18:37 ABG pO2 60 mmHg (85-104) L 12/22/18 18:37 ABG O2 Saturation 92 % (95-98) L 12/22/18 18:37 - Impressions Impressions Echocardiogram 12/24/18 17:21 Impressions: LVEF 65-70%. Normal LV chamber size, wall thickness and function. Normal right ventricular structure and function. Mildly dilated left atrium. No significant valvular dysfunction. No pulmonary hypertension. No gross valvular vegetation. Left Ventricular Wall Motion: Rest Echo Findings All wall segments showed normal motion. Findings: Study Quality * Technically adequate exam. ECG Findings * Normal sinus rhythm. Left Ventricle * LVEF 65-70%. * Normal LV chamber size, wall thickness and function. * Normal left ventricular diastolic function. Right Ventricle * Normal right ventricular structure and function. Left Atrium * Mildly dilated left atrium. Right Atrium * Normal right atrial size. Interatrial Septum * Interatrial septum not well evaluated. * No evidence of PFO by color Doppler. Aortic Valve * Trileaflet aortic valve. * Trileaflet aortic valve with normal function. * No aortic stenosis. * No aortic regurgitation. Mitral Valve * Normal mitral valve structure. * No mitral stenosis. * Trace mitral regurgitation. Tricuspid Valve * Normal tricuspid valve structure. * No tricuspid stenosis. * Trace tricuspid regurgitation. * Estimated RVSP is 35 mmHg. * Estimated RA pressure is 8 mmHg. * No pulmonary hypertension. Pulmonic Valve * Pulmonic valve is not well visualized. * No pulmonic stenosis. * No pulmonic regurgitation. Aorta * Normally sized aortic root. Pericardium * The pericardium appears normal. IVC * The IVC is dilated. * > 50% respiratory change Consult Discharge Plan - Plan Referrals: NONE,PCP [Primary Care Provider] - (4) Acute asthma exacerbation Qualifiers: Asthma severity: mild Asthma persistence: intermittent Qualified Code(s): J45.21 - Mild intermittent asthma with (acute) exacerbation (5) Sepsis Qualifiers: Qualified Code(s): A41.9 - Sepsis, unspecified organism
[2018-12-25 11:33] LABS: Alanine Aminotransferase 19 Units/L (7-52); Albumin 3.8 g/dL (3.5-5.7); Albumin/Globulin Ratio 1.2 (1.1-2.2); Alkaline Phosphatase 98 Units/L (34-104); Aspartate Amino Transferase 13 Units/L (13-39); BUN/Creatinine Ratio 28 (6-26); Bilirubin,Total 0.2 mg/dL (0.3-1.0); Blood Urea Nitrogen 18 mg/dL (6-20); Calcium 8.9 mg/dL (8.6-10.3); Carbon Dioxide 24 mEq/L (23-29); Chloride 106 mEq/L (98-107); Globulin 3.1 g/dL (2.4-3.5); Glucose 215 mg/dL (70-105); Osmolality,Calculated 290 (280-300); Potassium 4.4 mEq/L (3.5-5.1); Sodium 136 mEq/L (136-145); Total Protein 6.9 g/dL (6.4-8.9); eGFR For Non-African Americans > 60 (> 60)
[2018-12-25 14:08] LABS: BUN/Creatinine Ratio 31 (6-26); Blood Urea Nitrogen 20 mg/dL (6-20); Calcium 9.5 mg/dL (8.6-10.3); Carbon Dioxide 25 mEq/L (23-29); Chloride 105 mEq/L (98-107); Glucose 131 mg/dL (70-105); Osmolality,Calculated 286 (280-300); Potassium 4.2 mEq/L (3.5-5.1); Sodium 136 mEq/L (136-145); eGFR For Non-African Americans > 60 (> 60)
[2018-12-25] MEDS: cefTRIAXone 2,000 MG in Water for inj. (sterile) 20 ML 20 ML IVP SCH (20:03)
--- NOTE | 2018-12-25 22:30 | Electrocardiograph Report ---
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
[2018-12-25] MEDS: Nicotine 2 MG GUM BC PRN (23:00)
[2018-12-26] MEDS: Ipratropium/Albuterol Neb 3 ML IH SCH ×5 (03:48→20:26)
[2018-12-26] MEDS: Budesonide/Formoterol 80/4.5 MDI IH SCH ×2 (07:34→20:26)
[2018-12-26] MEDS: Nicotine 2 MG GUM BC PRN (08:36)
[2018-12-26] MEDS: clonazePAM 0.5 MG TABLET PO SCH ×3 (08:36→20:37)
[2018-12-26] MEDS: *HR* Buprenorphine HCl 8 MG TAB.SUBL SL SCH ×2 (08:36→20:37)
[2018-12-26] MEDS: Preparation H Ointment 30 GM TUBE RC SCH ×2 (08:36→20:37)
[2018-12-26] MEDS: MethylPREDNISolone 40 MG/ML VIAL IVP SCH (08:36)
[2018-12-26 08:43] LABS: Alanine Aminotransferase 20 Units/L (7-52); Albumin 4.3 g/dL (3.5-5.7); Albumin/Globulin Ratio 1.3 (1.1-2.2); Alkaline Phosphatase 109 Units/L (34-104); Aspartate Amino Transferase 14 Units/L (13-39); BUN/Creatinine Ratio 29 (6-26); Bilirubin,Total 0.2 mg/dL (0.3-1.0); Blood Urea Nitrogen 19 mg/dL (6-20); Calcium 9.6 mg/dL (8.6-10.3); Carbon Dioxide 23 mEq/L (23-29); Chloride 103 mEq/L (98-107); Globulin 3.3 g/dL (2.4-3.5); Glucose 123 mg/dL (70-105); Osmolality,Calculated 284 (280-300); Potassium 4.5 mEq/L (3.5-5.1); Sodium 135 mEq/L (136-145); Total Protein 7.6 g/dL (6.4-8.9); eGFR For Non-African Americans > 60 (> 60)
[2018-12-26 09:40] LABS: Basophils # 0.1 K/mcL (0.0-0.2); Basophils % 0.4 %; Eosinophils % 0.1 %; Hematocrit 39.1 % (35.3-44.9); Immature Granulocytes % 2.8 % (0-4); Lymphocytes % 16.9 %; Mean Corpuscular HGB Conc 31.7 g/dL (31.6-35.5); Mean Platelet Volume 8.6 fL (9.4-12.4); Monocytes # 0.9 K/mcL (0.0-1.3); Neutrophils # 13.1 K/mcL (1.6-8.9); Platelet Count 330 K/mcL (140-400); Red Cell Distribution Width 13.3 % (11.5-14.5); Segmented Neutrophils % 74.8 %
[2018-12-26 09:42] LABS: Hemoglobin 12.4 g/dL (11.5-15.4)
--- NOTE | 2018-12-26 11:37 | Internal Med Progress Note ---
Hospitalist Progress Note - Encounter Date of Encounter: 12/26/18 Time of Encounter: 11:00 - Subjective Interval History: Patient is a 33-year-old female with past medical history significant for asthma who presented with shortness of breath and found to have acute hypoxic respiratory failure with asthma exacerbation secondary to multifocal pneumonia Patient was also septic on admission which has now resolved. Patient was also found to have bacteremia with Streptococcus and was found to have Streptococcus on respiratory panel - Exam Vitals: Temp Pulse Resp BP Pulse Ox 98.3 F 60 17 148/80 93 12/26/18 10:42 12/26/18 10:42 12/26/18 10:42 12/26/18 10:42 12/26/18 10:42 Exam: Gen.: Nonacute distress, alert and oriented 3 ENT: Mucosal membranes moist Respiratory: Bilateral expiratory wheezes with decreased air flow Cardiovascular: Normal S1 and S2 regular rate rhythm no murmurs rubs or gallops Abdomen: Soft, nontender and nondistended with positive bowel sounds Extremities: No lower extremity edema Skin: Normal color - Assessment and Plan (1) Streptococcal pneumonia Current Visit: Yes Status: Acute Assessment and Plan: Chest x-ray showed bibasilar perihilar airspace disease suggestive of multifocal pneumonia Patient was found to have Streptococcus on respiratory panel Continue day 5 of IV ceftriaxone for multifocal streptococcal pneumonia (2) Streptococcal bacteremia Current Visit: Yes Status: Acute Assessment and Plan: Patient's blood cultures positive for Streptococcus canary to streptococcal pneumonia above Management as above Echocardiogram did not show any evidence of gross valvular vegetation Repeat blood cultures ordered (3) Acute respiratory failure with hypoxia Current Visit: Yes Status: Acute Assessment and Plan: Resolved; secondary to streptococcus pneumonia Will continue to monitor with continues pulse oximetry (4) Acute asthma exacerbation Current Visit: Yes Status: Acute Assessment and Plan: Asthma exacerbation secondary to the above Will de-escalate IV Solu-Medrol to oral prednisone and continue scheduled DuoNeb's. Also continuing home meds of Symbicort (5) Sepsis Current Visit: Yes Status: Resolved Assessment and Plan: Resolved Patient no longer tachycardic although with leukocytosis in the setting of steroid treatment Continue to monitor (6) Mood disorder Current Visit: Yes Status: Acute Assessment and Plan: Continue home medications DVT Prophylaxis: SCDs - Time Spent with Patient Total time spent is greater than 50% in coordination of care (as documented) at patient's floor/unit and/or counseling patient: Internal Medicine: Result - Labs CBC & Chem 7: 12/26/18 09:26 12/26/18 07:59 Labs: Short CBC 12/26/18 Range/Units 09:26 WBC 17.6 H (4.3-11.1) K/mcL Hgb 12.4 D (11.5-15.4) g/dL Hct 39.1 (35.3-44.9) % Plt Count 330 (140-400) K/mcL Neutrophils # 13.1 H (1.6-8.9) K/mcL BMP 12/25/18 12/26/18 13:33 07:59 Sodium 136 135 L Potassium 4.2 4.5 Chloride 105 103 Carbon Dioxide 25 23 BUN 20 19 Creatinine 0.65 0.66 Glucose 131 H 123 H Calcium 9.5 9.6 Liver Function 12/26/18 Range/Units 07:59 Total Bilirubin 0.2 L (0.3-1.0) mg/dL AST 14 (13-39) Units/L ALT 20 (7-52) Units/L Alkaline Phosphatase 109 H (34-104) Units/L Albumin 4.3 (3.5-5.7) g/dL - ABG Interpretation ABG results: ABG ABG pH 7.44 pH Units (7.32-7.45) 12/22/18 18:37 ABG pCO2 35 mmHg (35-45) 12/22/18 18:37 ABG pO2 60 mmHg (85-104) L 12/22/18 18:37 ABG O2 Saturation 92 % (95-98) L 12/22/18 18:37 Consult Discharge Plan - Plan Referrals: NONE,PCP [Primary Care Provider] - (4) Acute asthma exacerbation Qualifiers: Asthma severity: mild Asthma persistence: intermittent Qualified Code(s): J45.21 - Mild intermittent asthma with (acute) exacerbation (5) Sepsis Qualifiers: Qualified Code(s): A41.9 - Sepsis, unspecified organism
[2018-12-26] MEDS: predniSONE 20 MG TABLET PO SCH (18:06)
[2018-12-26] MEDS: cefTRIAXone 2,000 MG in Water for inj. (sterile) 20 ML 20 ML IVP SCH (20:36)
[2018-12-27] MEDS: Ipratropium/Albuterol Neb 3 ML IH SCH ×5 (00:30→15:34)
[2018-12-27 03:53] LABS: Basophils # 0.1 K/mcL (0.0-0.2); Basophils % 0.4 %; Eosinophils # 0.1 K/mcL (0.0-0.6); Eosinophils % 0.3 %; Hematocrit 38.5 % (35.3-44.9); Hemoglobin 12.6 g/dL (11.5-15.4); Immature Granulocytes % 2.9 % (0-4); Lymphocytes # 3.7 K/mcL (0.6-4.6); Lymphocytes % 17.9 %; Mean Corpuscular HGB Conc 32.7 g/dL (31.6-35.5); Mean Corpuscular Hemoglobin 27.2 pg (28.0-33.3); Monocytes # 1.3 K/mcL (0.0-1.3); Monocytes % 6.2 %; Neutrophils # 15.1 K/mcL (1.6-8.9); Nucleated Red Blood Cells 0.1 /100 WBC (0); Platelet Count 325 K/mcL (140-400); Red Blood Count 4.64 M/mcL (3.82-4.97); Red Cell Distribution Width 13.2 % (11.5-14.5); Segmented Neutrophils % 72.3 %
[2018-12-27 07:00] LABS: Alanine Aminotransferase 18 Units/L (7-52); Albumin/Globulin Ratio 1.3 (1.1-2.2); Alkaline Phosphatase 98 Units/L (34-104); Aspartate Amino Transferase 12 Units/L (13-39); BUN/Creatinine Ratio 28 (6-26); Bilirubin,Total 0.2 mg/dL (0.3-1.0); Blood Urea Nitrogen 20 mg/dL (6-20); Calcium 9.3 mg/dL (8.6-10.3); Carbon Dioxide 24 mEq/L (23-29); Chloride 104 mEq/L (98-107); Glucose 110 mg/dL (70-105); Osmolality,Calculated 285 (280-300); Sodium 136 mEq/L (136-145); eGFR For Non-African Americans > 60 (> 60)
[2018-12-27] MEDS: Budesonide/Formoterol 80/4.5 MDI IH SCH (07:43)
[2018-12-27] MEDS: clonazePAM 0.5 MG TABLET PO SCH (08:00)
[2018-12-27] MEDS: *HR* Buprenorphine HCl 8 MG TAB.SUBL SL SCH (08:00)
[2018-12-27] MEDS: predniSONE 20 MG TABLET PO SCH (08:00)
--- NOTE | 2018-12-27 12:30 | Consult Note ---
Date of Encounter: 12/27/18 Time of Encounter: 08:00 Assessment & Recommendation (1) Depression Current visit: Yes Status: Chronic Assessment & Recommendation: pt would benefit from being back on her celexa starting at 20mg and continuing on her other psych meds which she has already been gettign in the hospital. She should follow up with [facility]. She is OK for discharge from psych perspective once medically stable. Qualifiers: Depression Type: major depressive disorder Major depression recurrence: recurrent Active/Remission status: in partial remission Qualified Code(s): F33.41 - Major depressive disorder, recurrent, in partial remission (2) Mood disorder Current visit: Yes Status: Acute History of Present Illness Patient: new to practice Requesting Physician: Dinh Munoz Reason for consult: med adjustment History of present illness: Ms. Nguyen is a 33 year old female who is medically admitted for SOB with a history of depression who had been on celexa until about a month ago. She is also on Klonpoin, buspar, and vistaril which she has been consistent with but feels without her celexa her mood is not as good and she has more depression and more irritability. No SI/HI. No psychosis. No manic symptoms. CC: Dinh Munoz Past Med Surg Social Fam HX - Past Medical History Medical history: asthma, seizures - Past Psychiatric History Psychiatric history: Reports: anxiety, depression, previous psychiatric hospitalization Past psychiatric history details: She is linked with [facility] sym[facility]. Has been in the hospital in the past for SI but not in a few years. No prior suicide attempts. Family psychiatric history: Yes Family Psychiatric History Details: mother depression Family History of Suicide: None - Past Surgical History Surgical History: no surgical history, other - Social History Smoking Status: Current every day smoker Smokeless Tobacco Status: No Alcohol use: none Drug use: opiates Current living situation: Home Activity Level: Independent ambulation Recent Out of Country Travel Within the Last 8 Weeks: No Exposure or Possible Exposure to Illness During Travel: No Additional social history: Recent legal problems related to spanking her child and had to do parenting classes but charges were dropped. Lived with her 2 children. Medications & Allergies HydrOXYzine Pamoate [Vistaril] 50 mg PO Q6H PRN 03/02/18 [History] Albuterol Sulfate [Albuterol Inhaler] 1 puff IH Q6H PRN 12/24/18 [History] Buprenorphine HCl 8 mg PO BID 12/24/18 [History] Ibuprofen [Ibu-200] 400 mg PO DAILY PRN 12/24/18 [History] Allergy/AdvReac Type Severity Reaction Status Date / Time buprenorphine [From Suboxone] AdvReac See Verified 12/24/18 18:36 Comments Naloxone [From Suboxone] AdvReac See Verified 12/24/18 18:36 Comments quetiapine [From Seroquel] AdvReac See Verified 12/24/18 18:36 Comments Review of Systems Psychiatric: Reports: depression, irritability Psychiatry Exam - Constitutional Vitals: Temp Pulse Resp BP Pulse Ox 98.1 F 83 16 141/86 99 12/27/18 07:24 12/27/18 07:24 12/27/18 11:10 12/27/18 07:24 12/27/18 11:10 - Musculoskeletal Gait: normal - Psychiatric Patient Orientation: Yes Person, Yes Time, Yes Place Level of alertness: Alert Behavior: calm, cooperative Psychomotor activity: Normal Eye Contact: Maintains Eye Contact Mood Description: Euthymic/stable Patient description of mood: "fair" Affect description: congruent with mood, full range Speech Volume: Normal Speech pattern: normal rate, normal rhythm, normal tone, fluent, spontaneous Language & Vocabulary: consistent with education Thought Process: Linear, Goal Oriented Thought Content: No Suicidal ideation, No Homicidal ideation, No Overt delusions Perceptual Disturbances: No Auditory hallucinations, No Visual hallucinations Attention Span Ability: Capable of Focused Attention Memory Description: Grossly Intact Patient Reliability: Reliable Historian Fund of knowledge: Yes abstraction ability, Yes aware of current events Intelligence Estimate: Average Judgment: Fair Insight: Partial Results - Labs Labs: Laboratory Last Values WBC 20.9 K/mcL (4.3-11.1) H 12/27/18 03:40 RBC 4.64 M/mcL (3.82-4.97) 12/27/18 03:40 Hgb 12.6 g/dL (11.5-15.4) 12/27/18 03:40 Hct 38.5 % (35.3-44.9) 12/27/18 03:40 MCV 83.0 fL (83.0-100.0) 12/27/18 03:40 MCH 27.2 pg (28.0-33.3) L 12/27/18 03:40 MCHC 32.7 g/dL (31.6-35.5) 12/27/18 03:40 RDW 13.2 % (11.5-14.5) 12/27/18 03:40 Plt Count 325 K/mcL (140-400) 12/27/18 03:40 MPV 9.0 fL (9.4-12.4) L 12/27/18 03:40 Immature Gran % 2.9 % (0-4) 12/27/18 03:40 Seg Neutrophils % 72.3 % 12/27/18 03:40 Lymphocytes % 17.9 % 12/27/18 03:40 Monocytes % 6.2 % 12/27/18 03:40 Eosinophils % 0.3 % 12/27/18 03:40 Basophils % 0.4 % 12/27/18 03:40 Neutrophils # 15.1 K/mcL (1.6-8.9) H 12/27/18 03:40 Lymphocytes # 3.7 K/mcL (0.6-4.6) 12/27/18 03:40 Monocytes # 1.3 K/mcL (0.0-1.3) 12/27/18 03:40 Eosinophils # 0.1 K/mcL (0.0-0.6) 12/27/18 03:40 Basophils # 0.1 K/mcL (0.0-0.2) 12/27/18 03:40 Nucleated RBCs/100 WBC 0.1 /100 WBC (0) H 12/27/18 03:40 Sample Site R Radial 12/22/18 18:37 ABG pH 7.44 pH Units (7.32-7.45) 12/22/18 18:37 ABG pCO2 35 mmHg (35-45) 12/22/18 18:37 ABG pO2 60 mmHg (85-104) L 12/22/18 18:37 ABG HCO3 24 mEq/L (21-27) 12/22/18 18:37 ABG Total CO2 25 mEq/L (20-26) 12/22/18 18:37 ABG O2 Saturation 92 % (95-98) L 12/22/18 18:37 ABG Base Excess 0 mEq/L (-2 to 3) 12/22/18 18:37 Corey Test Positive 12/22/18 18:37 O2 Delivery Device Cannula 12/22/18 18:37 Inspired O2 28.0 (1-15=lpm [id number]=%) 12/22/18 18:37 Sodium 136 mEq/L (136-145) 12/27/18 06:27 Potassium 4.0 mEq/L (3.5-5.1) 12/27/18 06:27 Chloride 104 mEq/L (98-107) 12/27/18 06:27 Carbon Dioxide 24 mEq/L (23-29) 12/27/18 06:27 BUN 20 mg/dL (6-20) 12/27/18 06:27 Creatinine 0.71 mg/dL (0.60-1.20) 12/27/18 06:27 Est GFR ( Amer) > 60 (> 60) 12/27/18 06:27 Est GFR (Non-Af Amer) > 60 (> 60) 12/27/18 06:27 BUN/Creatinine Ratio 28 (6-26) H 12/27/18 06:27 Glucose 110 mg/dL (70-105) H 12/27/18 06:27 Calculated Osmolality 285 (280-300) 12/27/18 06:27 Calcium 9.3 mg/dL (8.6-10.3) 12/27/18 06:27 Phosphorus 3.8 mg/dL (2.7-4.5) 12/23/18 17:26 Magnesium 2.2 mg/dL (1.6-2.6) 12/23/18 17:26 Total Bilirubin 0.2 mg/dL (0.3-1.0) L 12/27/18 06:27 AST 12 Units/L (13-39) L 12/27/18 06:27 ALT 18 Units/L (7-52) 12/27/18 06:27 Alkaline Phosphatase 98 Units/L (34-104) 12/27/18 06:27 Troponin I < 0.03 ng/mL (< 0.04) 12/22/18 17:09 Serum Total Protein 7.0 g/dL (6.4-8.9) 12/27/18 06:27 Albumin 4.0 g/dL (3.5-5.7) 12/27/18 06:27 Globulin 3.0 g/dL (2.4-3.5) 12/27/18 06:27 Albumin/Globulin Ratio 1.3 (1.1-2.2) 12/27/18 06:27 Urine Opiates Screen Negative ng/mL (Crbpku=588) 12/23/18 20:37 Ur Barbiturates Screen Negative ng/mL (Pzeyrw=292) 12/23/18 20:37 Ur Phencyclidine Scrn Negative ng/mL (Cutoff=25) 12/23/18 20:37 Ur Amphetamines Screen Negative ng/mL (Oqwnox=0591) 12/23/18 20:37 U Benzodiazepines Scrn Negative ng/mL (Lvidvx=098) 12/23/18 20:37 Urine Cocaine Screen Negative ng/mL (Cutoff= 300) 12/23/18 20:37 U Marijuana (THC) Screen Negative ng/mL (Cutoff = 50) 12/23/18 20:37 Ur Drug Screen Interp See Below 12/23/18 20:37 A. baumannii (PCR) Not Detected (Not Detect) 12/22/18 18:37 Chlamy pneumoniae PCR Not Detected (Not Detect) 12/24/18 09:00 Adenovirus (PCR) Not Detected (Not Detect) 12/24/18 09:00 B. pertussis DNA (PCR) Not Detected (Not Detect) 12/24/18 09:00 B.parapertussis DNA PCR Not Detected (Not Detect) 12/24/18 09:00 Daysi albicans (PCR) Not Detected (Not Detect) 12/22/18 18:37 C. glabrata (PCR) Not Detected (Not Detect) 12/22/18 18:37 C. krusei (PCR) Not Detected (Not Detect) 12/22/18 18:37 C. parapsilosis (PCR) Not Detected (Not Detect) 12/22/18 18:37 C. tropicalis (PCR) Not Detected (Not Detect) 12/22/18 18:37 Coronavirus OC43 (PCR) Not Detected (Not Detect) 12/24/18 09:00 Coronavirus HKU1 (PCR) Not Detected (Not Detect) 12/24/18 09:00 Coronavirus 229E (PCR) Not Detected (Not Detect) 12/24/18 09:00 Coronavirus NL63 (PCR) Not Detected (Not Detect) 12/24/18 09:00 Enterobacteriac sp PCR Not Detected (Not Detect) 12/22/18 18:37 E. cloacae complex PCR Not Detected (Not Detect) 12/22/18 18:37 Enterococcus sp PCR Not Detected (Not Detect) 12/22/18 18:37 E. coli (PCR) Not Detected (Not Detect) 12/22/18 18:37 H. influenzae (PCR) Not Detected (Not Detect) 12/22/18 18:37 Human Metapneumovir PCR Not Detected (Not Detect) 12/24/18 09:00 Influenza A (H1) PCR Not Detected (Not Detect) 12/24/18 09:00 Influ A (H1N1/09) PCR Not Detected (Not Detect) 12/24/18 09:00 Influenza A (H3) PCR Not Detected (Not Detect) 12/24/18 09:00 Influenza A Untype (PCR) Not Detected (Not Detect) 12/24/18 09:00 Influenza Type B (PCR) Not Detected (Not Detect) 12/24/18 09:00 Klebsiella oxytoca PCR Not Detected (Not Detect) 12/22/18 18:37 Klebsiella pneumoniae Not Detected (Not Detect) 12/22/18 18:37 List. monocytogenes PCR Not Detected (Not Detect) 12/22/18 18:37 M.pneumoniae DNA (PCR) Not Detected (Not Detect) 12/24/18 09:00 N. meningitidis (PCR) Not Detected (Not Detect) 12/22/18 18:37 Parainfluenza 1 (PCR) Not Detected (Not Detect) 12/24/18 09:00 Parainfluenza 2 (PCR) Not Detected (Not Detect) 12/24/18 09:00 Parainfluenza 3 (PCR) Not Detected (Not Detect) 12/24/18 09:00 Parainfluenza 4 (PCR) Not Detected (Not Detect) 12/24/18 09:00 Proteus species (PCR) Not Detected (Not Detect) 12/22/18 18:37 RSV (PCR) Not Detected (Not Detect) 12/24/18 09:00 Entero/Rhino (PCR) Not Detected (Not Detect) 12/24/18 09:00 Serratia marcescens PCR Not Detected (Not Detect) 12/22/18 18:37 Staphylococcus sp PCR Not Detected (Not Detect) 12/22/18 18:37 Staph aureus (PCR) Not Detected (Not Detect) 12/22/18 18:37 mecA-Methicil Res Gene Not Detected (Not Detect) 12/22/18 18:37 Streptococcus sp PCR DETECTED (Not Detect) A 12/22/18 18:37 Group A Strep DNA Not Detected (Not Detect) 12/22/18 18:37 Group B Strep (PCR) Not Detected (Not Detect) 12/22/18 18:37 Strep pneumoniae (PCR) Not Detected (Not Detect) 12/22/18 18:37 P. aeruginosa (PCR) Not Detected (Not Detect) 12/22/18 18:37 Benitez/B-Vanco Res Genes Not Detected (Not Detect) 12/22/18 18:37 KPC (blaKPC) Detect PCR Not Detected (Not Detect) 12/22/18 18:37 Specimen Rejected Hemolyzed 12/27/18 03:40 Consult Discharge Plan - Plan Referrals: NONE,PCP [Primary Care Provider] -
[2018-12-27 12:34] VITALS: BP 138/80
--- NOTE | 2018-12-27 15:12 | Discharge Summary ---
- NOTES TO OUTPATIENT PROVIDER Notes to Outpatient Provider: Follow-up with psychiatry and PCP as an outpatient Orders not resulted at time of discharge: Pending orders 12/22/18 18:37 Culture,Blood [BC] Routine 12/25/18 13:33 Culture,Blood [BC] Routine 12/28/18 04:00 CBC [Complete Blood Count] [HEME] AM 0400 CMP [Comprehensive Metabolic Panel] AM 0400 Date of Encounter: 12/27/18 Time of Encounter: 11:00 - Discharge Diagnosis (1) Streptococcal pneumonia Priority: Primary Status: Acute (2) Streptococcal bacteremia Priority: Primary Status: Acute (3) Acute respiratory failure with hypoxia Priority: Primary Status: Acute (4) Acute asthma exacerbation Priority: Primary Status: Acute Qualifiers: Asthma severity: mild Asthma persistence: intermittent Qualified Code(s): J45.21 - Mild intermittent asthma with (acute) exacerbation (5) Sepsis Priority: Primary Status: Resolved Qualifiers: Qualified Code(s): A41.9 - Sepsis, unspecified organism (6) Mood disorder Priority: Secondary Status: Acute Hospital course: Patient is a 33-year-old female with past medical history significant for bipolar/depression/anxiety and asthma who presented with a one-week history of wheezing. Patient reports her shortness of breath became worse in addition to dyspnea on exertion so decided to come to the ER for evaluation. In the Er, she was given antibiotics and a breathing treatment. Chest xray showed multifocal pneumonia and she is being admitted for further management. During patients hospital stay she was treated for asthma exacerbation secondary to multifocal pneumonia with acute hypoxic respiratory failure. Her acute respiratory failure resolved with IV antibiotics and dual nebs in addition to steroids and she was weaned off supplemental oxygenation. Patient was also found to be bacteremic secondary to the pneumonia and repeat blood cultures were negative to date. She will be discharged to complete a 5 day course of Levaquin and prednisone. Patient also seen by psychiatrist while hospitalized with recommendations to restart her home dose of SSRI. She will follow up with psychiatrist as an outpatient. - Time Spent with Patient Total time spent providing and/or coordinating discharge services: - Discharge Medications Prescriptions: Albuterol Sulfate [Albuterol Inhaler] 1 puff IH Q6H PRN #1 inhaler PRN Reason: Shortness Of Breath Citalopram [CeleXA] 20 mg PO DAILY 30 Days #30 tablet Levofloxacin [Levaquin] 500 mg PO DAILY 5 Days #5 tablet predniSONE [PredniSONE] 40 mg PO DAILY #5 tablet Home Medications: HydrOXYzine Pamoate [Vistaril] 50 mg PO Q6H PRN 03/02/18 [History] Ibuprofen [Ibu-200] 400 mg PO DAILY PRN 12/24/18 [History] Albuterol Sulfate [Albuterol Inhaler] 1 puff IH Q6H PRN #1 inhaler 12/27/18 [Rx] Citalopram [CeleXA] 20 mg PO DAILY 30 Days #30 tablet 12/27/18 [Rx] Levofloxacin [Levaquin] 500 mg PO DAILY 5 Days #5 tablet 12/27/18 [Rx] predniSONE [PredniSONE] 40 mg PO DAILY #5 tablet 12/27/18 [Rx] Allergies/Adverse Reactions: Allergy/AdvReac Type Severity Reaction Status Date / Time buprenorphine [From Suboxone] AdvReac See Verified 12/24/18 18:36 Comments Naloxone [From Suboxone] AdvReac See Verified 12/24/18 18:36 Comments quetiapine [From Seroquel] AdvReac See Verified 12/24/18 18:36 Comments Date of admission: 12/22/18 18:29 Primary care physician: PCP NONE Consults: 12/24/18 10:25 Consult to Nurse Navigator [CONS] Routine Comment: pneumonia 12/26/18 12:52 Consult to Psychiatry [CONS] Routine Consulting Provider: Psychiatry Rozel Reason consult: Other Other reason and/or additional details: medication adjustment Time Notified: 12:53 Call Completed: Yes - Constitutional Vitals: Temp Pulse Resp BP Pulse Ox 98.1 F 92 14 138/80 94 12/27/18 12:32 12/27/18 12:32 12/27/18 12:32 12/27/18 12:32 12/27/18 12:32 Exam: Gen.: Nonacute distress, alert and oriented 3 Skin: Normal color - Patient Status Disposition: Home, Self-Care Condition: Good - Discharge Instructions Follow Up With: NONE,PCP [Primary Care Provider] - 01/01/19 1:00 am ([facility] [address] [id number] PLEASE ARRIVE AT 1:00 TO COMPLETE PRE-APPOINTMENT PAPERWORK. PLEASE COMPLETE ALL PRESCRIBED PRESCRIPTIONS ORDERED AFTER DISCHARGE. IF YOU NEED TO CANCEL OR RESCHEDULE YOUR APPOINTMENT PLEASE DO SO 24 HOURS IN ADVANCED. )
[2018-12-27] MEDS: Preparation H Ointment 30 GM TUBE RC SCH (16:23)
== END 2018-12-27 17:00 | disposition home or self-care (01) | DRG 720 ==
LOC: 3ANU 16:22 → EMEROOARM 16:22 → OBSVTOIN 18:29 → SUATTDRO 18:29 → 3ANU 19:52 → 2SOUTHHOLD 12-24 10:16
PROVIDERS: ADMIT Student in an Organized Health Care Education/Training Program; ATTEND Hospitalist

== ENCOUNTER 2019-07-19 14:40 | Observation (INO) ==
--- NOTE | 2019-07-19 14:59 | Emergency Department Note ---
Disposition Clinical Impression: Intentional overdose of drug in tablet form Disposition: Admitted As Inpatient Condition: Fair Referrals: NONE,PCP [Primary Care Provider] - Forms: ED Satisfaction Letter Time of Disposition: 18:36 General Adult HPI - General Chief complaint: ED Overdose Stated complaint: overdose Time Seen by Provider: 07/19/19 14:45 Source: police Limitations: other Nursing Notes Reviewed: Yes Vital Signs Reviewed: Yes - History of Present Illness Pain Scale: 0 - Related Data Home Medications Medication Instructions Recorded Confirmed HydrOXYzine Pamoate [Vistaril] 50 mg PO Q6H PRN 03/02/18 12/25/18 Ibuprofen [Ibu-200] 400 mg PO DAILY PRN 12/24/18 12/24/18 Previous Rx's Medication Instructions Recorded Albuterol Sulfate [Proventil 1 puff IH Q6H PRN #1 inhaler 12/27/18 Inhaler] predniSONE [PredniSONE] 40 mg PO DAILY #5 tablet 12/27/18 Doxepin [Sinequan] 50 mg PO HS #30 capsule 12/28/18 hydrOXYzine pamoate [HydrOXYzine 50 mg PO TID #45 cap 12/28/18 Pamoate] Allergies Allergy/AdvReac Type Severity Reaction Status Date / Time buprenorphine [From Suboxone] AdvReac See Verified 07/19/19 14:42 Comments Naloxone [From Suboxone] AdvReac See Verified 07/19/19 14:42 Comments quetiapine [From Seroquel] AdvReac See Verified 07/19/19 14:42 Comments Past Medical History - Past Medical History Medical history: Reports: asthma, seizures Surgical history: Reports: no surgical history, other Psychiatric history: Reports: anxiety, depression, previous psychiatric hospitalization 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 - Social History Smoking Status: Current every day smoker Smokeless Tobacco Status: No Alcohol use: Reports: none Drug use: Reports: opiates Physical Exam - General Limitations: other General appearance: lethargic Course Vital Signs Temperature 97.4 F L 07/19/19 14:42 Pulse Rate 74 07/19/19 14:42 Respiratory Rate 14 07/19/19 14:42 Blood Pressure 108/68 07/19/19 14:42 O2 Sat by Pulse Oximetry 97 07/19/19 14:42 Temperature 97.8 F 07/19/19 17:36 Pulse Rate 70 07/19/19 17:36 Respiratory Rate 14 07/19/19 17:36 Blood Pressure 100/58 07/19/19 17:36 O2 Sat by Pulse Oximetry 96 07/19/19 17:36 Oxygen Delivery Oxygen Delivery Room Air Medical Decision Making - Lab Data Result diagrams: 07/19/19 15:32 07/19/19 15:32 Lab Results 07/19/19 07/19/19 07/19/19 Range/Units 15:32 15:32 15:45 WBC 8.3 (4.3-11.1) K/mcL RBC 4.86 (3.82-4.97) M/mcL Hgb 12.9 (11.5-15.4) g/dL Hct 40.9 (35.3-44.9) % MCV 84.2 (83.0-100.0) fL MCH 26.5 L (28.0-33.3) pg MCHC 31.5 L (31.6-35.5) g/dL RDW 15.1 H (11.5-14.5) % Plt Count 289 (140-400) K/mcL MPV 9.0 L (9.4-12.4) fL Immature Gran % 0.2 (0-4) % Seg Neutrophils % 46.8 % Lymphocytes % 40.6 % Monocytes % 7.8 % Eosinophils % 4.0 % Basophils % 0.6 % Neutrophils # 3.9 (1.6-8.9) K/mcL Lymphocytes # 3.4 (0.6-4.6) K/mcL Monocytes # 0.6 (0.0-1.3) K/mcL Eosinophils # 0.3 (0.0-0.6) K/mcL Basophils # 0.1 (0.0-0.2) K/mcL Sodium 139 (136-145) mEq/L Potassium 4.0 (3.5-5.1) mEq/L Chloride 102 (98-107) mEq/L Carbon Dioxide 29 (23-29) mEq/L BUN 12 (6-20) mg/dL Creatinine 0.66 (0.60-1.20) mg/dL Est GFR ( Amer) > 60 (> 60) Est GFR (Non-Af Amer) > 60 (> 60) BUN/Creatinine Ratio 18 (6-26) Glucose 98 (70-105) mg/dL POC Glucose 88 (70-99) mg/dL Calculated Osmolality 288 (280-300) Calcium 9.3 (8.6-10.3) mg/dL Total Bilirubin 0.3 (0.3-1.0) mg/dL Direct Bilirubin 0.0 (0.0-0.2) mg/dL Indirect Bilirubin 0.3 (0.0-1.2) mg/dL AST 16 (13-39) Units/L ALT 14 (7-52) Units/L Alkaline Phosphatase 84 (34-104) Units/L Serum Total Protein 7.1 (6.4-8.9) g/dL Albumin 4.3 (3.5-5.7) g/dL Globulin 2.8 (2.4-3.5) g/dL Albumin/Globulin Ratio 1.5 (1.1-2.2) Urine Color (Yellow) Urine Clarity (Clear) Urine pH (5.0-8.0) pH Units Ur Specific [place] (1.010-1.025) Urine Protein (Neg-Trace) mg/dL Urine Glucose (UA) (Normal) mg/dL Urine Ketones (Negative) mg/dL Urine Blood (Negative) Urine Nitrite (Negative) Urine Bilirubin (Negative) Urine Urobilinogen (Normal) mg/dL Ur Leukocyte Esterase (Negative) Urine Test (Negative) Salicylates < 2.5 L (15.0-30.0) mg/dL Urine Opiates Screen (Kjkzlv=583) ng/mL Ur Buprenorphine Scrn (Cutoff=5) ng/mL Acetaminophen < 10 L (10-20) mcg/mL Ur Barbiturates Screen (Jhlnnt=462) ng/mL Ur Phencyclidine Scrn (Cutoff=25) ng/mL Ur Amphetamines Screen (Ougzdj=8856) ng/mL U Benzodiazepines Scrn (Tqgerq=284) ng/mL Urine Cocaine Screen (Cutoff= 300) ng/mL U Marijuana (THC) Screen (Cutoff = 50) ng/mL Ur Drug Screen Interp Ethyl Alcohol < 10 (Less than 10) mg/dL 07/19/19 07/19/19 07/19/19 Range/Units 16:52 16:52 16:52 WBC (4.3-11.1) K/mcL RBC (3.82-4.97) M/mcL Hgb (11.5-15.4) g/dL Hct (35.3-44.9) % MCV (83.0-100.0) fL MCH (28.0-33.3) pg MCHC (31.6-35.5) g/dL RDW (11.5-14.5) % Plt Count (140-400) K/mcL MPV (9.4-12.4) fL Immature Gran % (0-4) % Seg Neutrophils % % Lymphocytes % % Monocytes % % Eosinophils % % Basophils % % Neutrophils # (1.6-8.9) K/mcL Lymphocytes # (0.6-4.6) K/mcL Monocytes # (0.0-1.3) K/mcL Eosinophils # (0.0-0.6) K/mcL Basophils # (0.0-0.2) K/mcL Sodium (136-145) mEq/L Potassium (3.5-5.1) mEq/L Chloride (98-107) mEq/L Carbon Dioxide (23-29) mEq/L BUN (6-20) mg/dL Creatinine (0.60-1.20) mg/dL Est GFR ( Amer) (> 60) Est GFR (Non-Af Amer) (> 60) BUN/Creatinine Ratio (6-26) Glucose (70-105) mg/dL POC Glucose (70-99) mg/dL Calculated Osmolality (280-300) Calcium (8.6-10.3) mg/dL Total Bilirubin (0.3-1.0) mg/dL Direct Bilirubin (0.0-0.2) mg/dL Indirect Bilirubin (0.0-1.2) mg/dL AST (13-39) Units/L ALT (7-52) Units/L Alkaline Phosphatase (34-104) Units/L Serum Total Protein (6.4-8.9) g/dL Albumin (3.5-5.7) g/dL Globulin (2.4-3.5) g/dL Albumin/Globulin Ratio (1.1-2.2) Urine Color Yellow (Yellow) Urine Clarity Clear (Clear) Urine pH 5.0 (5.0-8.0) pH Units Ur Specific [place] 1.025 (1.010-1.025) Urine Protein Negative (Neg-Trace) mg/dL Urine Glucose (UA) Normal (Normal) mg/dL Urine Ketones Negative (Negative) mg/dL Urine Blood Negative (Negative) Urine Nitrite Negative (Negative) Urine Bilirubin Negative (Negative) Urine Urobilinogen Normal (Normal) mg/dL Ur Leukocyte Esterase Negative (Negative) Urine Test Negative (Negative) Salicylates (15.0-30.0) mg/dL Urine Opiates Screen Negative (Wjokyq=853) ng/mL Ur Buprenorphine Scrn Positive H (Cutoff=5) ng/mL Acetaminophen (10-20) mcg/mL Ur Barbiturates Screen Negative (Xfwrag=354) ng/mL Ur Phencyclidine Scrn Negative (Cutoff=25) ng/mL Ur Amphetamines Screen Positive H (Dckoxk=0148) ng/mL U Benzodiazepines Scrn Positive H (Cdeotu=129) ng/mL Urine Cocaine Screen Negative (Cutoff= 300) ng/mL U Marijuana (THC) Screen Positive H (Cutoff = 50) ng/mL Ur Drug Screen Interp See Below Ethyl Alcohol (Less than 10) mg/dL Attestation Statement - Attestation Attestation: I examined this patient and my medical decision-making was reviewed with the Resident Physician. I agree with the documented findings, disposition and treatment plan as described except to the extent set forth below. Patient presents to the ED with intentional overdose. Patient states she took 15 Neurontin that she brought off the street in an attempt to hurt herself. She was brought in by [facility]'s deputy. Patient was in senior living for probation violation. Patient reports a history of suicide attempts in the past but she does not elaborate. Denies any drugs or alcohol today. Denies any history of IV drug use. On exam she is somnolent but arousable. Slurring her words. Plan. Medical clearance and evaluation by 1A. [place] slip on chart. Patient has been observed for 4 hours. Still somnolent. Arousable. Maintaining her airway. Unable to medically clear. We will admit until patient is awake enough to talk to psych.
--- NOTE | 2019-07-19 15:01 | Emergency Department Note ---
Overdose - [facility] Narrative Medical decision making narrative: 1503: 34F with uncertain Pmhx that reports to this department from [facility] after reportedly taking 15 neurontin. Uncertain as to whether she took them to harm herself, she admits this once, but also states that she took them because she wanted to. 1800: I spoke with poison control again after the results of her lab work and EKG were available. RN from poison control states that the patient needs to be observed for a period of 6 hours after presentation which would make her observation over at 2115 this evening. However patient made statements that she did this in an attempt to harm herself so she will need to be evaluated by 1A before she can be discharged. Patient is unable to have this conversation at present as she remains drowsy but arousable. Patient will be admitted to the hospitalist Dr. Herrera who has agreed to accept her to his service for overnight observation and 1A evaluation in the morning. Patient remained stable while in the department and had a one-on-one sitter present. There is a pink slip present on the patient's chart. - Medical Records Medical records reviewed: Yes I reviewed the patient's medical records. - Lab Data Lab results reviewed: Yes I reviewed the patient's lab results. Result diagrams: 07/19/19 15:32 07/19/19 15:32 Lab Results 07/19/19 07/19/19 07/19/19 Range/Units 15:32 15:32 15:45 WBC 8.3 (4.3-11.1) K/mcL RBC 4.86 (3.82-4.97) M/mcL Hgb 12.9 (11.5-15.4) g/dL Hct 40.9 (35.3-44.9) % MCV 84.2 (83.0-100.0) fL MCH 26.5 L (28.0-33.3) pg MCHC 31.5 L (31.6-35.5) g/dL RDW 15.1 H (11.5-14.5) % Plt Count 289 (140-400) K/mcL MPV 9.0 L (9.4-12.4) fL Immature Gran % 0.2 (0-4) % Seg Neutrophils % 46.8 % Lymphocytes % 40.6 % Monocytes % 7.8 % Eosinophils % 4.0 % Basophils % 0.6 % Neutrophils # 3.9 (1.6-8.9) K/mcL Lymphocytes # 3.4 (0.6-4.6) K/mcL Monocytes # 0.6 (0.0-1.3) K/mcL Eosinophils # 0.3 (0.0-0.6) K/mcL Basophils # 0.1 (0.0-0.2) K/mcL Sodium 139 (136-145) mEq/L Potassium 4.0 (3.5-5.1) mEq/L Chloride 102 (98-107) mEq/L Carbon Dioxide 29 (23-29) mEq/L BUN 12 (6-20) mg/dL Creatinine 0.66 (0.60-1.20) mg/dL Est GFR ( Amer) > 60 (> 60) Est GFR (Non-Af Amer) > 60 (> 60) BUN/Creatinine Ratio 18 (6-26) Glucose 98 (70-105) mg/dL POC Glucose 88 (70-99) mg/dL Calculated Osmolality 288 (280-300) Calcium 9.3 (8.6-10.3) mg/dL Total Bilirubin 0.3 (0.3-1.0) mg/dL Direct Bilirubin 0.0 (0.0-0.2) mg/dL Indirect Bilirubin 0.3 (0.0-1.2) mg/dL AST 16 (13-39) Units/L ALT 14 (7-52) Units/L Alkaline Phosphatase 84 (34-104) Units/L Serum Total Protein 7.1 (6.4-8.9) g/dL Albumin 4.3 (3.5-5.7) g/dL Globulin 2.8 (2.4-3.5) g/dL Albumin/Globulin Ratio 1.5 (1.1-2.2) Urine Color (Yellow) Urine Clarity (Clear) Urine pH (5.0-8.0) pH Units Ur Specific [place] (1.010-1.025) Urine Protein (Neg-Trace) mg/dL Urine Glucose (UA) (Normal) mg/dL Urine Ketones (Negative) mg/dL Urine Blood (Negative) Urine Nitrite (Negative) Urine Bilirubin (Negative) Urine Urobilinogen (Normal) mg/dL Ur Leukocyte Esterase (Negative) Urine Test (Negative) Salicylates < 2.5 L (15.0-30.0) mg/dL Urine Opiates Screen (Nwvjik=957) ng/mL Ur Buprenorphine Scrn (Cutoff=5) ng/mL Acetaminophen < 10 L (10-20) mcg/mL Ur Barbiturates Screen (Hrhlgw=186) ng/mL Ur Phencyclidine Scrn (Cutoff=25) ng/mL Ur Amphetamines Screen (Zdyand=9500) ng/mL U Benzodiazepines Scrn (Ftspfm=905) ng/mL Urine Cocaine Screen (Cutoff= 300) ng/mL U Marijuana (THC) Screen (Cutoff = 50) ng/mL Ur Drug Screen Interp Ethyl Alcohol < 10 (Less than 10) mg/dL 07/19/19 07/19/19 07/19/19 Range/Units 16:52 16:52 16:52 WBC (4.3-11.1) K/mcL RBC (3.82-4.97) M/mcL Hgb (11.5-15.4) g/dL Hct (35.3-44.9) % MCV (83.0-100.0) fL MCH (28.0-33.3) pg MCHC (31.6-35.5) g/dL RDW (11.5-14.5) % Plt Count (140-400) K/mcL MPV (9.4-12.4) fL Immature Gran % (0-4) % Seg Neutrophils % % Lymphocytes % % Monocytes % % Eosinophils % % Basophils % % Neutrophils # (1.6-8.9) K/mcL Lymphocytes # (0.6-4.6) K/mcL Monocytes # (0.0-1.3) K/mcL Eosinophils # (0.0-0.6) K/mcL Basophils # (0.0-0.2) K/mcL Sodium (136-145) mEq/L Potassium (3.5-5.1) mEq/L Chloride (98-107) mEq/L Carbon Dioxide (23-29) mEq/L BUN (6-20) mg/dL Creatinine (0.60-1.20) mg/dL Est GFR ( Amer) (> 60) Est GFR (Non-Af Amer) (> 60) BUN/Creatinine Ratio (6-26) Glucose (70-105) mg/dL POC Glucose (70-99) mg/dL Calculated Osmolality (280-300) Calcium (8.6-10.3) mg/dL Total Bilirubin (0.3-1.0) mg/dL Direct Bilirubin (0.0-0.2) mg/dL Indirect Bilirubin (0.0-1.2) mg/dL AST (13-39) Units/L ALT (7-52) Units/L Alkaline Phosphatase (34-104) Units/L Serum Total Protein (6.4-8.9) g/dL Albumin (3.5-5.7) g/dL Globulin (2.4-3.5) g/dL Albumin/Globulin Ratio (1.1-2.2) Urine Color Yellow (Yellow) Urine Clarity Clear (Clear) Urine pH 5.0 (5.0-8.0) pH Units Ur Specific [place] 1.025 (1.010-1.025) Urine Protein Negative (Neg-Trace) mg/dL Urine Glucose (UA) Normal (Normal) mg/dL Urine Ketones Negative (Negative) mg/dL Urine Blood Negative (Negative) Urine Nitrite Negative (Negative) Urine Bilirubin Negative (Negative) Urine Urobilinogen Normal (Normal) mg/dL Ur Leukocyte Esterase Negative (Negative) Urine Test Negative (Negative) Salicylates (15.0-30.0) mg/dL Urine Opiates Screen Negative (Ddoinu=345) ng/mL Ur Buprenorphine Scrn Positive H (Cutoff=5) ng/mL Acetaminophen (10-20) mcg/mL Ur Barbiturates Screen Negative (Qbjvlk=679) ng/mL Ur Phencyclidine Scrn Negative (Cutoff=25) ng/mL Ur Amphetamines Screen Positive H (Veuleq=3508) ng/mL U Benzodiazepines Scrn Positive H (Wdygld=599) ng/mL Urine Cocaine Screen Negative (Cutoff= 300) ng/mL U Marijuana (THC) Screen Positive H (Cutoff = 50) ng/mL Ur Drug Screen Interp See Below Ethyl Alcohol (Less than 10) mg/dL - Radiology Data Radiology results reviewed: Yes I reviewed the patient's radiology results. - EKG Data EKG attestation: Yes I reviewed and interpreted this EKG. EKG results narrative: Heart rate 79, rhythm sinus, axis normal. W[place] 147, QRS 96, QTC 446. No ST segment elevations. When compared with previous EKG dated 12/22/2018 the previous EKG shows sinus tachycardia which is not present on the current study. Overdose HPI - General Chief Complaint: ED Overdose Stated Complaint: overdose Time Seen by Provider: 07/19/19 14:45 Source: patient, police Mode of arrival: EMS Limitations: other Nursing Notes Reviewed: Yes Vital Signs Reviewed: Yes - History of Present Illness HPI Narrative: 34-year-old female who was discharged [facility] the [place] [facility] at 0300 this morning and then picked up at 0930 for a parole violation as she was found to be high. While she was being processed in, she admitted to taking 15 neurontin and was brought here for further evaluation. Pt was asked multiple times why she took the neurontin and she said that she "wanted to" and also said that she was "trying to hurt herself." The reasons she gives change. Pt is drowsy but arousable. She has difficulty holding her eyes open. - Related Data Home Medications Medication Instructions Recorded Confirmed HydrOXYzine Pamoate [Vistaril] 50 mg PO Q6H PRN 03/02/18 12/25/18 Ibuprofen [Ibu-200] 400 mg PO DAILY PRN 12/24/18 12/24/18 Previous Rx's Medication Instructions Recorded Albuterol Sulfate [Proventil 1 puff IH Q6H PRN #1 inhaler 12/27/18 Inhaler] predniSONE [PredniSONE] 40 mg PO DAILY #5 tablet 12/27/18 Doxepin [Sinequan] 50 mg PO HS #30 capsule 12/28/18 hydrOXYzine pamoate [HydrOXYzine 50 mg PO TID #45 cap 12/28/18 Pamoate] Allergies Allergy/AdvReac Type Severity Reaction Status Date / Time buprenorphine [From Suboxone] AdvReac See Verified 07/19/19 14:42 Comments Naloxone [From Suboxone] AdvReac See Verified 07/19/19 14:42 Comments quetiapine [From Seroquel] AdvReac See Verified 07/19/19 14:42 Comments Limitations: ROS unobtainable due to patients medical condition Past Medical History - Past Medical History Attestation: Yes The following information was validated with the patient. 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 No acute distress. Well developed, well nourished. Head: atraumatic, normocephalic. ENT: No conjunctival injection, no scleral icterus. PERRLA. Oropharynx non- erythematous. mucous membranes moist. Pt cannot follow finger on exam, uncertain if EOMI. Neuro: Unable to assess as pt is unable to participate in the exam. Pulm: Lungs CTAB A/P. No wheezes, rales, ronchi. Cardio: RRR no m/r/g. Chest not tender to palpation. Abd: Soft, non-distended. Normoactive bowel sounds. Non-tender to palpation. No guarding. Non rigid. Extremities: Radial pulses 2+ frantz, dorsalis pedis/posterior tibialis 2+ frantz. No LE edema. No cyanosis, clubbing. Skin: warm, dry, intact. No rashes. Psych: Appropriate mood and affect. Answers questions appropriately. Cooperative with exam. - General Limitations: other General appearance: lethargic Course - Consultations Consultation #1: Spoke with Anitha RN from [facility]. She states that neurontin She recommends supportive care. Time: 15:14 Vital Signs Temperature 97.4 F L 07/19/19 14:42 Pulse Rate 74 07/19/19 14:42 Respiratory Rate 14 07/19/19 14:42 Blood Pressure 108/68 07/19/19 14:42 O2 Sat by Pulse Oximetry 97 07/19/19 14:42 Temperature 97.8 F 07/19/19 17:36 Pulse Rate 69 07/19/19 18:50 Respiratory Rate 14 07/19/19 18:50 Blood Pressure 100/58 07/19/19 17:36 O2 Sat by Pulse Oximetry 95 07/19/19 18:50 Oxygen Delivery Oxygen Delivery Room Air Disposition Clinical Impression: Intentional overdose of drug in tablet form Disposition: Admitted As Inpatient Condition: Fair Time of Disposition: 18:30
[2019-07-19 15:46] LABS: Basophils # 0.1 K/mcL (0.0-0.2); Basophils % 0.6 %; Eosinophils # 0.3 K/mcL (0.0-0.6); Hematocrit 40.9 % (35.3-44.9); Hemoglobin 12.9 g/dL (11.5-15.4); Immature Granulocytes % 0.2 % (0-4); Lymphocytes # 3.4 K/mcL (0.6-4.6); Lymphocytes % 40.6 %; Mean Corpuscular HGB Conc 31.5 g/dL (31.6-35.5); Mean Corpuscular Hemoglobin 26.5 pg (28.0-33.3); Mean Corpuscular Volume 84.2 fL (83.0-100.0); Monocytes # 0.6 K/mcL (0.0-1.3); Monocytes % 7.8 %; Neutrophils # 3.9 K/mcL (1.6-8.9); Platelet Count 289 K/mcL (140-400); Red Blood Count 4.86 M/mcL (3.82-4.97); Red Cell Distribution Width 15.1 % (11.5-14.5); Segmented Neutrophils % 46.8 %; White Blood Count 8.3 K/mcL (4.3-11.1)
[2019-07-19 16:11] LABS: Acetaminophen < 10 mcg/mL (10-20); Alanine Aminotransferase 14 Units/L (7-52); Albumin 4.3 g/dL (3.5-5.7); Albumin/Globulin Ratio 1.5 (1.1-2.2); Alkaline Phosphatase 84 Units/L (34-104); Aspartate Amino Transferase 16 Units/L (13-39); Bilirubin,Indirect 0.3 mg/dL (0.0-1.2); Bilirubin,Total 0.3 mg/dL (0.3-1.0); Blood Urea Nitrogen 12 mg/dL (6-20); Calcium 9.3 mg/dL (8.6-10.3); Carbon Dioxide 29 mEq/L (23-29); Chloride 102 mEq/L (98-107); Ethanol < 10 mg/dL (Less than 10); Globulin 2.8 g/dL (2.4-3.5); Glucose 98 mg/dL (70-105); Osmolality,Calculated 288 (280-300); Salicylate < 2.5 mg/dL (15.0-30.0); Sodium 139 mEq/L (136-145); Total Protein 7.1 g/dL (6.4-8.9)
[2019-07-19 16:18] LABS: BUN/Creatinine Ratio 18 (6-26); eGFR For African Americans > 60 (> 60); eGFR For Non-African Americans > 60 (> 60)
[2019-07-19 17:09] LABS: Bilirubin,Urine Negative (Negative); Blood,Urine Negative (Negative); Clarity,Urine Clear (Clear); Color,Urine Yellow (Yellow); Glucose,Urine (UA) Normal (Normal); Ketones,Urine Negative (Negative); Leukocyte Esterase,Urine Negative (Negative); Nitrite,Urine Negative (Negative); Protein,Urine Negative (Neg-Trace); Specific Gravity,Urine 1.025 (1.010-1.025); Urobilinogen,Urine Normal (Normal)
[2019-07-19 17:21] LABS: Amphetamine Screen,Urine Positive ng/mL (Cutoff=1000); Barbiturate Screen,Urine Negative ng/mL (Cutoff=200); Benzodiazepines Screen,Urine Positive ng/mL (Cutoff=200); Cannabinoid Screen,Urine Positive ng/mL (Cutoff = 50); Cocaine Screen,Urine Negative ng/mL (Cutoff= 300); Opiate Screen,Urine Negative ng/mL (Cutoff=300); Phencyclidine Screen,Urine Negative ng/mL (Cutoff=25)
[2019-07-19] MEDS ORDERED: Naloxone 0.4 MG/ML INJ IVP PRN (20:55)
[2019-07-19] MEDS ORDERED: Acetaminophen 325 MG TABLET PO PRN (20:55)
[2019-07-19] MEDS ORDERED: *HR* Promethazine 25 MG/ML VIAL IVP PRN (20:55)
--- NOTE | 2019-07-19 21:28 | Internal Med History&Physical ---
Date of Encounter: 07/19/19 Time of Encounter: 20:00 Internal Medicine - H&P: HPI Chief complaint: OD Admitted From: Emergency Dept Plans for Post Hospital Care: Home History of present illness: Ms. Nguyen is a 34 year old female w/PMH of asthma, seizures, and depression presents from the ED w/CC of OD of 15 Gabapentin. Patient was released on high at approximately 03:00 this morning from the care home and picked up again at 09:30 for violating parole by being found to be high. While on her way back to care home, the patient stated she took 15 Gabapentin as an OD. Patient claimed this was intentional when she was told she would be observed for 6 hours. On assessment, patient is arousable but somnolent. Patient answers questions with repeat attempts. States that she has attempted to OD before and has been hospitalized for psychiatric reasons several years ago. Patient stated that she experienced CP and SOB while high and describes the CP as central in chest w/radiation to her back. Denies previous CP hx or previous drug use. Denies alcohol abuse. Patient denies recent illness, fever, chills, nausea, vomiting, headache, changes in vision, unusual bleeding, abdominal pain, diarrhea, constipation, numbness, tingling, pre-syncope, or syncope. Past Med Surg Social Fam HX - Past Medical History Source: patient, old records reviewed Medical history: asthma, seizures Additional medical history: hep c, history of IVDU Psychiatric history: anxiety, depression, previous psychiatric hospitalization - Past Surgical History Surgical History: no surgical history, other Additional surgical history: tubal ligation - Social History Smoking Status: Current every day smoker Smokeless Tobacco Status: No Alcohol use: none Drug use: opiates, marijuana, methamphetamine, other (Buprenorphine) Current living situation: Home Activity Level: Independent ambulation Recent Out of Country Travel Within the Last 8 Weeks: No Exposure or Possible Exposure to Illness During Travel: No - Family History Grandmother Race: Family Member Ethnicity: Non- Living Status: Cause of : Uterine cancer Hx Family Cancer: Yes (Uterine) Grandfather Race: Family Member Ethnicity: Non- Living Status: Cause of : Lung cancer Hx Family Cancer: Yes (Lung) Father Race: Family Member Ethnicity: Non- Living Status: Still Living Hx Family Medical Disorders: No Mother Race: Family Member Ethnicity: Non- Living Status: Still Living Hx Family Medical Disorders: No Brother Race: Family Member Ethnicity: Non- Living Status: Still Living Hx Family Medical Disorders: No Sister Race: Family Member Ethnicity: Non- Living Status: Age at : 32 Cause of : Blood clot Hx Family Cardiac Disorders: Yes (Blood clot) Internal Medicine - H&P: Meds HydrOXYzine Pamoate [Vistaril] 50 mg PO Q6H PRN 03/02/18 [History] Ibuprofen [Ibu-200] 400 mg PO DAILY PRN 12/24/18 [History] Albuterol Sulfate [Proventil Inhaler] 1 puff IH Q6H PRN #1 inhaler 12/27/18 [Rx] predniSONE [PredniSONE] 40 mg PO DAILY #5 tablet 12/27/18 [Rx] Doxepin [Sinequan] 50 mg PO HS #30 capsule 12/28/18 [Rx] hydrOXYzine pamoate [HydrOXYzine Pamoate] 50 mg PO TID #45 cap 12/28/18 [Rx] Allergy/AdvReac Type Severity Reaction Status Date / Time buprenorphine [From Suboxone] AdvReac See Verified 07/19/19 14:42 Comments Naloxone [From Suboxone] AdvReac See Verified 07/19/19 14:42 Comments quetiapine [From Seroquel] AdvReac See Verified 07/19/19 14:42 Comments All Systems PM: A 10-system review of systems was performed and is negative for pertinent findings except as documented above in the HPI. - Constitutional Constitutional: no chills, no fever(s), no night sweats - EENT Eyes: no change in vision, no discharge, no pain, no photophobia Ears: no ear discharge, no ear pain, no tinnitus Nose, mouth and throat: no dysphagia, no nasal discharge, no neck pain, no sore throat - Breasts Breasts: as per HPI - Cardiovascular Cardiovascular ROS IM: as per HPI, chest pain, dyspnea, dyspnea on exertion, no diaphoresis, no lightheadedness, no palpitations, no syncope - Respiratory Respiratory: as per HPI, dyspnea, dyspnea on exertion, no cough, no wheezing, no excessive phlegm production - Gastrointestinal Gastrointestinal: no abdominal pain, no diarrhea, no hematemesis, no hematochezia, no melena, no nausea, no vomiting - Genitourinary Genitourinary: no change in urinary stream, no dysuria, no flank pain, no hematuria Menstruation: as per HPI - Musculoskeletal Musculoskeletal ROS IM: no numbness, no tingling - Integumentary Integumentary IM: no rash, no unusual bruising - Neurological Neurological ROS: no confusion, no convulsions, no focal weakness, no numbness, no tingling, no tremor(s) - Psychiatric Psychiatric: as per HPI, depression, suicidal ideation - Endocrine Endocrine IM: as per HPI - Hematologic/Lymphatic Hematologic/Lymphatic: no easy bruising - Allergic/Immunologic Allergic/Immunologic: as per HPI - Constitutional Vitals: Temp Pulse Resp BP Pulse Ox 97.8 F 66 15 99/66 96 07/19/19 19:47 07/19/19 19:47 07/19/19 19:47 07/19/19 19:47 07/19/19 19:47 General appearance: Present: cooperative, A&O X 1, no acute distress, obese, answers questions appropriately Exam: Patient examined at bedside. Patient is somnolent but arousable. Answers questions with repeat efforts. Patient states that she had CP and SOB earlier while high. Denies those or any other sx or complaints on exam. VS: 97.8F temp, HR 66, RR 15, BP 99/66, SPO2 96% on room air. - Head Head exam: Present: atraumatic, normocephalic - Eye Eye exam: Present: PERRL, conjuntiva pink, sclera anicteric Pupils: Present: PERRL - ENT ENT exam: Present: normal exam - Neck Neck exam general surgery: Present: normal inspection, supple, trachea midline. Absent: lymphadenopathy - Respiratory Respiratory exam: Present: CTAB. Absent: accessory muscle use, rales, rhonchi, wheezes - Cardiovascular Cardiovascular exam: Present: RRR, +S1, +S2. Absent: diastolic murmur, gallop, rubs, systolic murmur - GI/Abdominal GI/Abdominal exam: Present: normal bowel sounds, soft, no peritoneal signs. Absent: distended, tenderness - Rectal Rectal exam: Present: deferred - Additional comments: exam deferred. - Extremities Exam Extremities exam: Present: warm, radial pulses palpable and symmetrical. Absent: calf tenderness, cyanotic, pedal edema - Back Exam Back exam: Present: normal inspection - Neurological Exam Neurological exam: Present: altered, CN II-XII intact. Absent: pronater drift, facial droop, speech deficit - Psychiatric Psychiatric exam: Present: normal affect, normal mood - Skin Skin exam: Present: dry, intact Internal Med - H&P Results - Labs CBC & Chem 7: 07/19/19 15:32 07/19/19 15:32 Labs: Short CBC 07/19/19 Range/Units 15:32 WBC 8.3 (4.3-11.1) K/mcL Hgb 12.9 (11.5-15.4) g/dL Hct 40.9 (35.3-44.9) % Plt Count 289 (140-400) K/mcL Neutrophils # 3.9 (1.6-8.9) K/mcL BMP 07/19/19 15:32 Sodium 139 Potassium 4.0 Chloride 102 Carbon Dioxide 29 BUN 12 Creatinine 0.66 Glucose 98 Calcium 9.3 Liver Function 07/19/19 Range/Units 15:32 Total Bilirubin 0.3 (0.3-1.0) mg/dL Direct Bilirubin 0.0 (0.0-0.2) mg/dL AST 16 (13-39) Units/L ALT 14 (7-52) Units/L Alkaline Phosphatase 84 (34-104) Units/L Albumin 4.3 (3.5-5.7) g/dL Urine 07/19/19 Range/Units 16:52 Urine Color Yellow (Yellow) Urine Clarity Clear (Clear) Urine pH 5.0 (5.0-8.0) pH Units Ur Specific [place] 1.025 (1.010-1.025) Urine Protein Negative (Neg-Trace) mg/dL Urine Glucose (UA) Normal (Normal) mg/dL - EKG Data EKG shows normal: sinus rhythm - EKG Data Prior EKG available for review: yes EKG comments: 07/19/19 21:41 EKG dated 12/22/18 shows sinus tachycardia with borderline repolarization abnormality. EKG dated 07/19/19 shows sinus rhythm and normal ECG. - Assessment and Plan (1) Intentional overdose of drug in tablet form Current Visit: Yes Status: Acute Assessment and plan: Acute OD w/pt reportedly taking 15 Gabapentin. Patient was released on high at approximately 03:00 this morning from the care home and picked up again at 09:30 for violating parole by being found to be high. While on her way back to care home, the patient stated she took 15 Gabapentin as an OD. Patient claimed this was intent ional when she was told she would be observed for 6 hours. On assessment, patient is arousable but somnolent. Patient answers questions with repeat attempts. States that she has attempted to OD before and has been hospitalized for psychiatric reasons several years ago. Patient stated that she experienced CP and SOB while high and describes the CP as central in chest w/radiation to her back. Denies previous CP hx or previous drug use. Denies alcohol abuse. 1A consult ordered and confirmed. Seizure precautions. Suicide precautions. Elevate HOB. NPO w/dysphasia screen. CXR unremarkable. Patient is high risk for further morbidity and complications d/t current OD, hx of seizures not being treated w/medication; positive tox screen for buprenorphine, meth, benzodiazepines and marijuana; report of CP and SOB requiring further testing and monitoring. Observation. (2) Suicidal ideation Current Visit: Yes Status: Acute Assessment and plan: Acute suicidal ideation. Patient reported that she tok 15 Gabapentin to self- harm. Patient reports to me that she has no Rx for Gabapentin and that someone gave them to her. On exam, she states that she was hospitalized for psychiatric issues several years ago. Denies regular drug use. 1A consult ordered and discussed w/Dr. Judy Patel who will see the pt. in the a.m. I appreciate the consult and recommendations as always. Suicide precautions. Sitter. (3) Asthma Current Visit: Yes Status: Chronic Assessment and plan: Hx of asthma. Stable. Continue pts. Proventil inhaler. Supplemental O2 with titration and SPO2 monitoring. Qualifiers: Asthma severity: mild Asthma persistence: intermittent Asthma complication type: uncomplicated Qualified Code(s): J45.20 - Mild intermittent asthma, uncomplicated (4) Depression Current Visit: Yes Status: Chronic Assessment and plan: Hx of chronic depression. Will continue pts. Sinequan and hydroxyzine pamoate once A&O and after 6-hour observation window for OD. Qualifiers: Depression Type: major depressive disorder Major depression recurrence: recurrent Active/Remission status: in partial remission Qualified Code(s): F33.41 - Major depressive disorder, recurrent, in partial remission (5) History of seizures Current Visit: Yes Status: Chronic Assessment and plan: Hx of seizures. Patient unable to tell me when last seizure was. Seizure precautions. Elevate HOB. Aspiration precautions. Padding added to side rails. Patient does not currently take seizure medication. Monitor closely and add Keppra IVPB if needed. (6) DVT prophylaxis Current Visit: Yes Status: Acute Assessment and plan: Bilateral SCDs on LEs for DVT prophylaxis. - Time Spent With Patient Total time spent is greater than 50% in coordination of care (as documented) at patient's floor/unit and/or counseling patient: Greater than 35 minutes
[2019-07-19] MEDS: 0.9 % Sodium Chloride 1,000 ML IVC SCH (22:09)
[2019-07-20 01:24] LABS: Hematocrit 40.5 % (35.3-44.9); Hemoglobin 12.8 g/dL (11.5-15.4); Mean Corpuscular HGB Conc 31.6 g/dL (31.6-35.5); Mean Corpuscular Hemoglobin 26.4 pg (28.0-33.3); Mean Corpuscular Volume 83.7 fL (83.0-100.0); Platelet Count 278 K/mcL (140-400); Red Blood Count 4.84 M/mcL (3.82-4.97); Red Cell Distribution Width 15.3 % (11.5-14.5); White Blood Count 6.6 K/mcL (4.3-11.1)
[2019-07-20 01:43] LABS: Alanine Aminotransferase 15 Units/L (7-52); Albumin 3.8 g/dL (3.5-5.7); Albumin/Globulin Ratio 1.4 (1.1-2.2); Alkaline Phosphatase 76 Units/L (34-104); Aspartate Amino Transferase 22 Units/L (13-39); BUN/Creatinine Ratio 19 (6-26); Bilirubin,Total 0.3 mg/dL (0.3-1.0); Blood Urea Nitrogen 11 mg/dL (6-20); Calcium 8.9 mg/dL (8.6-10.3); Carbon Dioxide 24 mEq/L (23-29); Chloride 106 mEq/L (98-107); Chol/HDL Ratio 4.1 (0-4.9); Cholesterol 174 mg/dL (< 200); Globulin 2.7 g/dL (2.4-3.5); Glucose 87 mg/dL (70-105); HDL Cholesterol 42 mg/dL (40-59); LDL Cholesterol,Calculated 107 mg/dL (0-99); Magnesium 2.1 mg/dL (1.6-2.6); Osmolality,Calculated 281 (280-300); Potassium 4.2 mEq/L (3.5-5.1); Sodium 136 mEq/L (136-145); Total Protein 6.5 g/dL (6.4-8.9); Triglycerides 123 mg/dL (< 150); eGFR For African Americans > 60 (> 60); eGFR For Non-African Americans > 60 (> 60)
[2019-07-20] MEDS: 0.9 % Sodium Chloride 1,000 ML IVC SCH (08:06)
--- NOTE | 2019-07-20 09:24 | Consult Note ---
Date of Encounter: 07/20/19 Time of Encounter: 08:35 Assessment & Recommendation (1) Depression Current visit: Yes Status: Chronic Assessment & Recommendation: Patient is currently denying suicidal ideations. She is agreeable to restarting Celexa and I would recommend this be started 20 mg by mouth every morning. If she does restart having suicidal ideations the correction can manage this by placing her on suicide watch. Either way I recommend that the correction assess her suicide risk when she arrives per their protocol as well as consults at a [facility] for linkage with correction mental health services. Qualifiers: Depression Type: major depressive disorder Major depression recurrence: recurrent Active/Remission status: currently active Major depression episode severity: moderate Qualified Code(s): F33.1 - Major depressive disorder, recurrent, moderate History of Present Illness Patient: new to practice Requesting Physician: Radha Sabillon MD Reason for consult: Patient made a comment about suicidal ideations History of present illness: Ms. Nguyen is a 34 year old female patient was being taken to correction for probation violation when she reported that she had taken an overdose of gabapentin. Initially she indicated this was in the context of "partying" however she later stated that it was an attempt to hurt herself and she was suicidal. She now says that she is not having any suicidal thoughts. She denies intention or plans to harm herself. She is not happy about going to correction but says she understands she needs to get this taken care of. She is somewhat vague and will not tell me what her initial charges were that resulted in her being on probation saying "I do not remember it spent over 3 years". She reports some sad mood with limited sleep however she denies hopelessness poor interests or impaired appetite. She denies a history of manic symptoms or psychotic symptoms such as hallucinations or delusions. CC: Radha Sabillon MD Past Med Surg Social Fam HX - Past Medical History Medical history: asthma, seizures - Past Psychiatric History Psychiatric history: Reports: depression, prior suicide attempt. Denies: previous psychiatric hospitalization Past psychiatric history details: She reports she is. She been treated with Celexa for depression and said this is helpful. She denies prior psychiatric admissions. She works that she has 1 other overdose attempt and attempt to self-harm but could not recall the date but did states been more than 1 year. She has never been in counseling. Celexa was prescribed by a primary care physician. Records also indicate that she is allergic to quetiapine sequelae she has been tried on this at one point. Family psychiatric history: No Family History of Suicide: None - Past Surgical History Surgical History: no surgical history, other - Social History Smoking Status: Current every day smoker Smokeless Tobacco Status: No Alcohol use: none Drug use: opiates, marijuana, methamphetamine, other (Buprenorphine) - Family History Grandmother Race: Family Member Ethnicity: Non- Living Status: Cause of : Uterine cancer Hx Family Cancer: Yes (Uterine) Grandfather Race: Family Member Ethnicity: Non- Living Status: Cause of : Lung cancer Hx Family Cancer: Yes (Lung) Father Race: Family Member Ethnicity: Non- Living Status: Still Living Hx Family Medical Disorders: No Mother Race: Family Member Ethnicity: Non- Living Status: Still Living Hx Family Medical Disorders: No Brother Race: Family Member Ethnicity: Non- Living Status: Still Living Hx Family Medical Disorders: No Sister Race: Family Member Ethnicity: Non- Living Status: Age at : 32 Cause of : Blood clot Hx Family Cardiac Disorders: Yes (Blood clot) Medications & Allergies No Known Home Drugs 07/19/19 [History] Allergy/AdvReac Type Severity Reaction Status Date / Time buprenorphine [From Suboxone] AdvReac See Verified 07/19/19 14:42 Comments Naloxone [From Suboxone] AdvReac See Verified 07/19/19 14:42 Comments quetiapine [From Seroquel] AdvReac See Verified 07/19/19 14:42 Comments Review of Systems Constitutional: Reports: weakness Eyes: Denies: eye pain Ears, Nose, Throat: Denies: ear pain Cardiovascular: Reports: chest pain Respiratory: Denies: cough Gastrointestinal: Denies: abdominal pain Genitourinary female: Denies: urgency Musculoskeletal: Denies: back pain Integumentary: Denies: rash Neurological: Reports: weakness Psychiatric: Reports: depression, abnormal sleep pattern. Denies: suicidal ideation, homicidal ideation, auditory hallucinations, visual hallucinations, hopelessness Endocrine: Reports: fatigue Hematologic/Lymphatic: Denies: easy bleeding Allergic/Immunologic: Denies: facial swelling Psychiatry Exam - Constitutional Vitals: Temp Pulse Resp BP Pulse Ox 97.9 F 77 16 109/67 94 07/20/19 07:45 07/20/19 07:45 07/20/19 07:45 07/20/19 07:45 07/20/19 07:45 General appearance: age & developmentally appropriate, disheveled - Musculoskeletal Gait: other (In bed) Station: relaxed Strength & Tone: normal for patient - Psychiatric Patient Orientation: Yes Person, Yes Time, Yes Place, Yes Circumstance Level of alertness: Alert Behavior: calm Psychomotor activity: Slowed Eye Contact: Minimal Contact Mood Description: Depressed Patient description of mood: Sad. I do not want to go back to correction. Affect description: dysphoric Speech Volume: Soft/Quiet Speech pattern: slowed Language & Vocabulary: consistent with education Thought Process: Linear, Goal Oriented Thought Content: No Suicidal ideation, No Homicidal ideation, No Overt delusions Perceptual Disturbances: No Auditory hallucinations, No Visual hallucinations Attention Span Ability: Capable of Focused Attention Memory Description: Grossly Intact Patient Reliability: Reliable Historian Fund of knowledge: Yes abstraction ability, Yes aware of current events Intelligence Estimate: Average Judgment: Good Insight: Full Results - Drug Levels and Toxicology Drug Levels and Toxicology: Drug Levels and Toxicity 07/19/19 07/19/19 15:32 16:52 Urine Opiates Screen Negative Acetaminophen < 10 L Ur Barbiturates Screen Negative Ur Phencyclidine Scrn Negative Ur Amphetamines Screen Positive H U Benzodiazepines Scrn Positive H Urine Cocaine Screen Negative U Marijuana (THC) Screen Positive H Ethyl Alcohol < 10 - Labs Labs: Laboratory Last Values WBC 6.6 K/mcL (4.3-11.1) 07/20/19 00:49 RBC 4.84 M/mcL (3.82-4.97) 07/20/19 00:49 Hgb 12.8 g/dL (11.5-15.4) 07/20/19 00:49 Hct 40.5 % (35.3-44.9) 07/20/19 00:49 MCV 83.7 fL (83.0-100.0) 07/20/19 00:49 MCH 26.4 pg (28.0-33.3) L 07/20/19 00:49 MCHC 31.6 g/dL (31.6-35.5) 07/20/19 00:49 RDW 15.3 % (11.5-14.5) H 07/20/19 00:49 Plt Count 278 K/mcL (140-400) 07/20/19 00:49 MPV 9.0 fL (9.4-12.4) L 07/20/19 00:49 Immature Gran % 0.2 % (0-4) 07/19/19 15:32 Seg Neutrophils % 46.8 % 07/19/19 15:32 Lymphocytes % 40.6 % 07/19/19 15:32 Monocytes % 7.8 % 07/19/19 15:32 Eosinophils % 4.0 % 07/19/19 15:32 Basophils % 0.6 % 07/19/19 15:32 Neutrophils # 3.9 K/mcL (1.6-8.9) 07/19/19 15:32 Lymphocytes # 3.4 K/mcL (0.6-4.6) 07/19/19 15:32 Monocytes # 0.6 K/mcL (0.0-1.3) 07/19/19 15:32 Eosinophils # 0.3 K/mcL (0.0-0.6) 07/19/19 15:32 Basophils # 0.1 K/mcL (0.0-0.2) 07/19/19 15:32 Sodium 136 mEq/L (136-145) 07/20/19 00:49 Potassium 4.2 mEq/L (3.5-5.1) 07/20/19 00:49 Chloride 106 mEq/L (98-107) 07/20/19 00:49 Carbon Dioxide 24 mEq/L (23-29) 07/20/19 00:49 BUN 11 mg/dL (6-20) 07/20/19 00:49 Creatinine 0.57 mg/dL (0.60-1.20) L 07/20/19 00:49 Est GFR ( Amer) > 60 (> 60) 07/20/19 00:49 Est GFR (Non-Af Amer) > 60 (> 60) 07/20/19 00:49 BUN/Creatinine Ratio 19 (6-26) 07/20/19 00:49 Glucose 87 mg/dL (70-105) 07/20/19 00:49 POC Glucose 91 mg/dL (70-99) 07/19/19 23:29 Calculated Osmolality 281 (280-300) 07/20/19 00:49 Calcium 8.9 mg/dL (8.6-10.3) 07/20/19 00:49 Magnesium 2.1 mg/dL (1.6-2.6) 07/20/19 00:49 Total Bilirubin 0.3 mg/dL (0.3-1.0) 07/20/19 00:49 Direct Bilirubin 0.0 mg/dL (0.0-0.2) 07/19/19 15:32 Indirect Bilirubin 0.3 mg/dL (0.0-1.2) 07/19/19 15:32 AST 22 Units/L (13-39) 07/20/19 00:49 ALT 15 Units/L (7-52) 07/20/19 00:49 Alkaline Phosphatase 76 Units/L (34-104) 07/20/19 00:49 Troponin I < 0.03 ng/mL (< 0.04) 07/19/19 21:27 Serum Total Protein 6.5 g/dL (6.4-8.9) 07/20/19 00:49 Albumin 3.8 g/dL (3.5-5.7) 07/20/19 00:49 Globulin 2.7 g/dL (2.4-3.5) 07/20/19 00:49 Albumin/Globulin Ratio 1.4 (1.1-2.2) 07/20/19 00:49 Triglycerides 123 mg/dL (< 150) 07/20/19 00:49 Cholesterol 174 mg/dL (< 200) 07/20/19 00:49 LDL Cholesterol, Calc 107 mg/dL (0-99) H 07/20/19 00:49 VLDL Cholesterol, Calc 25 mg/dL (< 31) 07/20/19 00:49 HDL Cholesterol 42 mg/dL (40-59) 07/20/19 00:49 Cholesterol/HDL Ratio 4.1 (0-4.9) 07/20/19 00:49 Urine Color Yellow (Yellow) 07/19/19 16:52 Urine Clarity Clear (Clear) 07/19/19 16:52 Urine pH 5.0 pH Units (5.0-8.0) 07/19/19 16:52 Ur Specific [place] 1.025 (1.010-1.025) 07/19/19 16:52 Urine Protein Negative mg/dL (Neg-Trace) 07/19/19 16:52 Urine Glucose (UA) Normal mg/dL (Normal) 07/19/19 16:52 Urine Ketones Negative mg/dL (Negative) 07/19/19 16:52 Urine Blood Negative (Negative) 07/19/19 16:52 Urine Nitrite Negative (Negative) 07/19/19 16:52 Urine Bilirubin Negative (Negative) 07/19/19 16:52 Urine Urobilinogen Normal mg/dL (Normal) 07/19/19 16:52 Ur Leukocyte Esterase Negative (Negative) 07/19/19 16:52 Urine Test Negative (Negative) 07/19/19 16:52 Salicylates < 2.5 mg/dL (15.0-30.0) L 07/19/19 15:32 Urine Opiates Screen Negative ng/mL (Vctlty=554) 07/19/19 16:52 Ur Buprenorphine Scrn Positive ng/mL (Cutoff=5) H 07/19/19 16:52 Acetaminophen < 10 mcg/mL (10-20) L 07/19/19 15:32 Ur Barbiturates Screen Negative ng/mL (Scpnyi=879) 07/19/19 16:52 Ur Phencyclidine Scrn Negative ng/mL (Cutoff=25) 07/19/19 16:52 Ur Amphetamines Screen Positive ng/mL (Yhcmar=6340) H 07/19/19 16:52 U Benzodiazepines Scrn Positive ng/mL (Ifapzw=760) H 07/19/19 16:52 Urine Cocaine Screen Negative ng/mL (Cutoff= 300) 07/19/19 16:52 U Marijuana (THC) Screen Positive ng/mL (Cutoff = 50) H 07/19/19 16:52 Ur Drug Screen Interp See Below 07/19/19 16:52 Ethyl Alcohol < 10 mg/dL (Less than 10) 07/19/19 15:32 - Impressions Impressions Chest X-Ray 07/19/19 20:51 IMPRESSION: No acute cardiopulmonary disease. D/ / Jason Crabtree / Jason Crabtree Interpreting Provider: Jason Crabtree Consult Discharge Plan - Plan Referrals: NONE,PCP [Primary Care Provider] -
[2019-07-20 12:58] VITALS: BP 106/58
--- NOTE | 2019-07-20 14:18 | Internal Med Progress Note ---
Hospitalist Progress Note - Encounter Date of Encounter: 07/20/19 Time of Encounter: 09:15 - Subjective Interval History: Ms. Nguyen is a 34-year-old female who initially presented to the ER after telling police that she had taken 15 gabapentin in order to hurt herself. She had some chest pain while doing drugs yesterday but this is sensory is solved. Patient was watched for withdrawal symptoms as well as toxicity symptoms. Psychiatry was consulted and they recommended that she start Celexa 20 mg daily. They also stated if she restarts having suicidal ideations this can be managed in skilled nursing. They have cleared her for active suicidal ideations and rotated discharge on their standpoint. Patient's vital signs has been stable throughout her stay, labs are relatively benign besides a slightly increased LDL cholesterol 107. No signs of UA, no signs of CA on EKG. Echocardiogram showed LVEF of 55-60%, normal left ventricular chamber size wall thickness and function, some mild left ventricular diastolic dysfunction, normal right ventricular structure and function with no evidence of pulmonary hypertension significant valvular dysfunction or obvious vegetations visualized. - Exam Vitals: Temp Pulse Resp BP Pulse Ox 98.4 F 74 16 106/58 94 07/20/19 12:55 07/20/19 12:55 07/20/19 12:55 07/20/19 12:55 07/20/19 12:55 Exam: General: AAO 3, answers questions appropriately, no acute distress Head: normocephalic, atraumatic Eyes: PAULINE, no icterus Cardio: RRR, no murmurs, rubs, or gallops Respiratory: CTAB, no wheezing, rhonchi, rales Abd: normal bowel sounds, no guarding or rigidity Extremities: no peda edema, pulses equal bilaterally, warm Skin: warm, dry, intact - Assessment and Plan (1) Depression Current Visit: Yes Status: Chronic Assessment and Plan: Start Celexa 20 mg daily Follow with primary care provider for continued depression No active suicidal ideations at this time (2) Intentional overdose of drug in tablet form Current Visit: Yes Status: Acute Assessment and Plan: Acute overdose with reportedly taking 15 gabapentin. Was released on high at 3 AM yesterday and picked up at 9:30 AM for violating parole when she was found to be high. On her way back to the skilled nursing she stated that she took 15 gabapentin as an intentional overdose. Patient is now awake alert and oriented to person place and time. She answers questions appropriately. Patient has tried overdose in the past but states that she does not remember trying to harm herself this time she just took a map gabapentin so that she would actually feel it is effects instead of not feeling it at all. She states she has to take more and more gabapentin to get any relief of any pain when she does take it. Patient does state that she took Xanax as well Patient was monitored and had a sitter on floor Psychiatry recommended starting Celexa 20 mg daily for her depression No active suicidal ideations or plan (3) Asthma Current Visit: No Status: Chronic Assessment and Plan: Patient has history of asthma Currently stable continue Proventil inhaler (4) History of seizures Current Visit: No Status: Chronic Assessment and Plan: Patient has history of seizures Not currently on any seizure medications (5) Suicidal ideation Current Visit: Yes Status: Acute Assessment and Plan: Currently no active suicidal ideations or intended plan Psychiatry evaluation showed depression with no active suicidal ideations Start Celexa for depression - Time Spent with Patient Total time spent is greater than 50% in coordination of care (as documented) at patient's floor/unit and/or counseling patient: Internal Medicine: Result - Labs CBC & Chem 7: 07/20/19 00:49 07/20/19 00:49 Labs: Short CBC 07/19/19 07/20/19 Range/Units 15:32 00:49 WBC 8.3 6.6 (4.3-11.1) K/mcL Hgb 12.9 12.8 (11.5-15.4) g/dL Hct 40.9 40.5 (35.3-44.9) % Plt Count 289 278 (140-400) K/mcL Neutrophils # 3.9 (1.6-8.9) K/mcL BMP 07/19/19 07/20/19 15:32 00:49 Sodium 139 136 Potassium 4.0 4.2 Chloride 102 106 Carbon Dioxide 29 24 BUN 12 11 Creatinine 0.66 0.57 L Glucose 98 87 Calcium 9.3 8.9 Cardiac Enzymes 07/19/19 Range/Units 21:27 Troponin I < 0.03 (< 0.04) ng/mL Liver Function 07/19/19 07/20/19 Range/Units 15:32 00:49 Total Bilirubin 0.3 0.3 (0.3-1.0) mg/dL Direct Bilirubin 0.0 (0.0-0.2) mg/dL AST 16 22 (13-39) Units/L ALT 14 15 (7-52) Units/L Alkaline Phosphatase 84 76 (34-104) Units/L Albumin 4.3 3.8 (3.5-5.7) g/dL Urine 07/19/19 Range/Units 16:52 Urine Color Yellow (Yellow) Urine Clarity Clear (Clear) Urine pH 5.0 (5.0-8.0) pH Units Ur Specific [place] 1.025 (1.010-1.025) Urine Protein Negative (Neg-Trace) mg/dL Urine Glucose (UA) Normal (Normal) mg/dL - Impressions Impressions Chest X-Ray 07/19/19 20:51 IMPRESSION: No acute cardiopulmonary disease. D/ / Jason Crabtree / Jason Crabtree Interpreting Provider: Jason Crabtree Echocardiogram 07/20/19 07:00 Impressions: LVEF 55-60%. Normal LV chamber size, wall thickness and function. Mild left ventricular diastolic dysfunction. Normal right ventricular structure and function. No evidence of pulmonary hypertension. No significant valvular dysfunction. No obvious vegetations visualized. Consider ZAYRA if clinically indicated. Left Ventricular Wall Motion: Rest Echo Findings All wall segments showed normal motion. Findings: Study Quality * Technically sub-optimal due to poor echocardiographic windows. ECG Findings * Normal sinus rhythm. Left Ventricle * LVEF 55-60%. * Normal LV chamber size, wall thickness and function. * Mild left ventricular diastolic dysfunction. Right Ventricle * Normal right ventricular structure and function. Left Atrium * Mildly dilated left atrium. Right Atrium * Normal right atrial size. Interatrial Septum * Interatrial septum not well evaluated. Aortic Valve * Aortic valve not well visualized. * No aortic regurgitation. * No aortic stenosis. Mitral Valve * Normal mitral valve structure and function. * No mitral stenosis. * No mitral regurgitation. Tricuspid Valve * Normal tricuspid valve structure and function. * Trace tricuspid regurgitation. * No evidence of pulmonary hypertension. Pulmonic Valve * Pulmonic valve not well visualized. * No pulmonic regurgitation. Aorta * Normally sized aortic root. Pericardium * The pericardium appears normal. IVC * Normal IVC dimensions and inspiratory collapse. Pulmonary Artery * Normal visualized portions of the main pulmonary artery. Consult Discharge Plan - Plan Referrals: NONE,PCP [Primary Care Provider] - (1) Depression Qualifiers: Depression Type: major depressive disorder Major depression recurrence: recurrent Active/Remission status: currently active Major depression episode severity: moderate Qualified Code(s): F33.1 - Major depressive disorder, recurrent, moderate (3) Asthma Qualifiers: Asthma severity: mild Asthma persistence: intermittent Asthma complication type: uncomplicated Qualified Code(s): J45.20 - Mild intermittent asthma, uncomplicated
--- NOTE | 2019-07-20 14:26 | Discharge Summary ---
<KusumhiteshlorenzoKalee Elvispatrice - Last Filed: 07/20/19 15:23> Date of Encounter: 07/20/19 - Discharge Diagnosis (1) DVT prophylaxis Status: Acute (2) Depression Status: Chronic Qualifiers: Depression Type: major depressive disorder Major depression recurrence: recurrent Active/Remission status: currently active Major depression episode severity: moderate Qualified Code(s): F33.1 - Major depressive disorder, recurrent, moderate (3) Intentional overdose of drug in tablet form Status: Acute (4) Asthma Status: Chronic Qualifiers: Asthma severity: mild Asthma persistence: intermittent Asthma complication type: uncomplicated Qualified Code(s): J45.20 - Mild intermittent asthma, uncomplicated (5) History of seizures Status: Chronic (6) Suicidal ideation Status: Acute Hospital course: Ms. Nguyen is a 34 year old female - Time Spent with Patient Total time spent providing and/or coordinating discharge services: - Discharge Medications Prescriptions: New Citalopram Hydrobromide [Celexa] 20 mg PO DAILY #30 tab Home Medications: Citalopram Hydrobromide [Celexa] 20 mg PO DAILY #30 tab 07/20/19 [Rx] Allergies/Adverse Reactions: Allergy/AdvReac Type Severity Reaction Status Date / Time buprenorphine [From Suboxone] AdvReac See Verified 07/19/19 14:42 Comments Naloxone [From Suboxone] AdvReac See Verified 07/19/19 14:42 Comments quetiapine [From Seroquel] AdvReac See Verified 07/19/19 14:42 Comments Date of admission: 07/19/19 18:42 Primary care physician: PCP NONE Consults: 07/19/19 20:24 Consult to Psychiatry [CONS] Routine Consulting Provider: Psychiatry [place] Reason consult: [place] slip on chart Other reason and/or additional details: Patient broke parole and was being sent back to senior care when she stated that she took 15 Gabapentins. When told she would be observed for 6 hours and released if asymptomatic, she stated that she attempted to OD as self-harm. Urine tox positive for buprenorphine, meth, benzos, and marijuana. [place] Slip initiated date and time: 07/19/19 16:17 Call Completed: Yes 07/19/19 20:57 Consult to Sheet Metal Layout Mechanic [CONS] Routine Reason for SW Consult: Patient is in need of drug rehabilitation - Constitutional Vitals: Temp Pulse Resp BP Pulse Ox 98.4 F 74 16 106/58 94 07/20/19 12:55 07/20/19 12:55 07/20/19 12:55 07/20/19 12:55 07/20/19 12:55 - Patient Status Disposition: Transfer Other Condition: Good - Discharge Instructions Instructions: Asthma (DC), Acute Respiratory Distress Syndrome (DC), Depression (DC), Sepsis (DC), Pneumonia (DC) Follow Up With: NONE,PCP [Primary Care Provider] - - Attending Attestation I saw evaluated and examined this patient and reviewed objective data including labs and my medical decision-making was reviewed with the Resident Physician. I agree with the documented findings, disposition and treatment plan as described except to any changes set forth below. We independently had [id number] contact with the patient. <Lillie Hernandez E - Last Filed: 07/21/19 07:31> Date of Encounter: 07/21/19 Time of Encounter: 09:15 - Discharge Diagnosis (1) Depression Priority: Primary Status: Chronic Assessment and Plan: Start Celexa 20 mg daily Follow with primary care provider for continued depression No active suicidal ideations at this time Qualifiers: Depression Type: major depressive disorder Major depression recurrence: recurrent Active/Remission status: currently active Major depression episode severity: moderate Qualified Code(s): F33.1 - Major depressive disorder, recurrent, moderate (2) Intentional overdose of drug in tablet form Priority: Primary Status: Acute Assessment and Plan: Acute overdose with reportedly taking 15 gabapentin. Was released on high at 3 AM yesterday and picked up at 9:30 AM for violating parole when she was found to be high. On her way back to the senior care she stated that she took 15 gabapentin as an intentional overdose. Patient is now awake alert and oriented to person place and time. She answers questions appropriately. Patient has tried overdose in the past but states that she does not remember trying to harm herself this time she just took a map gabapentin so that she would actually feel it is effects instead of not feeling it at all. She states she has to take more and more gabapentin to get any relief of any pain when she does take it. Patient does state that she took Xanax as well Patient was monitored and had a sitter on floor Psychiatry recommended starting Celexa 20 mg daily for her depression No active suicidal ideations or plan (3) Asthma Priority: Secondary Status: Chronic Assessment and Plan: Patient has history of asthma Currently stable continue Proventil inhaler Qualifiers: Asthma severity: mild Asthma persistence: intermittent Asthma complication type: uncomplicated Qualified Code(s): J45.20 - Mild intermittent asthma, uncomplicated (4) History of seizures Priority: Secondary Status: Chronic Assessment and Plan: Patient has history of seizures Not currently on any seizure medications (5) Suicidal ideation Priority: Primary Status: Acute Assessment and Plan: Currently no active suicidal ideations or intended plan Psychiatry evaluation showed depression with no active suicidal ideations Start Celexa for depression Hospital course: Ms. Nguyen is a 34-year-old female who initially presented to the ER after telling police that she had taken 15 gabapentin in order to hurt herself. She had some chest pain while doing drugs yesterday but this is sensory is solved. Patient was watched for withdrawal symptoms as well as toxicity symptoms. Psychiatry was consulted and they recommended that she start Celexa 20 mg daily. They also stated if she restarts having suicidal ideations this can be managed in senior care. They have cleared her for active suicidal ideations and rotated discharge on their standpoint. Patient's vital signs has been stable throughout her stay, labs are relatively benign besides a slightly increased LDL cholesterol 107. No signs of UA, no signs of NH on EKG. Echocardiogram showed LVEF of 55-60%, normal left ventricular chamber size wall thickness and function, some mild left ventricular diastolic dysfunction, normal right ventricular structure and function with no evidence of pulmonary hypertension significant valvular dysfunction or obvious vegetations visualized. Discharge discussed with: patient - Time Spent with Patient Total time spent providing and/or coordinating discharge services: Date of admission: 07/19/19 18:42 Primary care physician: PCP NONE Consults: 07/19/19 20:24 Consult to Psychiatry [CONS] Routine Consulting Provider: Psychiatry [place] Reason consult: [place] slip on chart Other reason and/or additional details: Patient broke parole and was being sent back to senior care when she stated that she took 15 Gabapentins. When told she would be observed for 6 hours and released if asymptomatic, she stated that she attempted to OD as self-harm. Urine tox positive for buprenorphine, meth, benzos, and marijuana. [place] Slip initiated date and time: 07/19/19 16:17 Call Completed: Yes 07/19/19 20:57 Consult to Sheet Metal Layout Mechanic [CONS] Routine Reason for SW Consult: Patient is in need of drug rehabilitation Discharging clinician: Radha Sabillon Anticipated date of discharge: 07/20/19 - Constitutional Vitals: Temp Pulse Resp BP Pulse Ox 98.4 F 74 16 106/58 94 07/20/19 12:55 07/20/19 12:55 07/20/19 12:55 07/20/19 12:55 07/20/19 12:55 General appearance: Present: cooperative, A&O X 1, no acute distress, obese, answers questions appropriately Exam: General: AAO 3, answers questions appropriately, no acute distress Head: normocephalic, atraumatic Eyes: PAULINE, no icterus Cardio: RRR, no murmurs, rubs, or gallops Respiratory: CTAB, no wheezing, rhonchi, rales Abd: normal bowel sounds, no guarding or rigidity Extremities: no peda edema, pulses equal bilaterally, warm Skin: warm, dry, intact - Patient Status Functional capacity at discharge: independent ambulation Overall status at discharge: patient is back to baseline - Diet and Activity Activity: increase activity as tolerated Diet: advance to your usual diet
--- NOTE | 2019-07-22 22:21 | Electrocardiograph Report ---
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
--- NOTE | 2019-07-22 22:24 | Electrocardiograph Report ---
[address] [address] Test Date: 2019-07-19 Pat Name: Whit Nguyen Department: 113 Room: 3B12 Gender: F Manager Sourcing: TBC : 1985 Requested By: Danny Francois Order Number: [id number] Reading MD: Rick Joyce Measurements Intervals [place] Rate: 69 P: 59 [place]: 161 QRS: 66 QRSD: 90 T: 19 QT: 392 QTc: 410 Interpretive Statements SINUS RHYTHM WITH OCCASIONAL VENTRICULAR PREMATURE COMPLEXES Electronically Signed On 07-22-2019 22:23:35 EDT by Rick Joyce
== END 2019-07-20 17:15 | disposition other institution (70) ==
LOC: 3BNU 14:40 → EMEROOARM 14:40 → SUATTDRO 18:42 → 3BNU 18:50
PROVIDERS: ADMIT Internal Medicine; ATTEND Student in an Organized Health Care Education/Training Program

== ENCOUNTER 2022-05-24 16:46 | Observation (INO) ==
[2022-05-24 18:44] LABS: Adenovirus Not Detected (Not Detect); Bordetella Pertussis Not Detected (Not Detect); Chlamydophila pneumoniae Not Detected (Not Detect); Coronavirus 229E Not Detected (Not Detect); Coronavirus HKU1 Not Detected (Not Detect); Coronavirus NL63 Not Detected (Not Detect); Coronavirus OC43 Not Detected (Not Detect); Human Metapneumovirus Not Detected (Not Detect); Human Rhinovirus/Enterovirus Not Detected (Not Detect); Influenza A Subtype 2009 H1 Not Detected (Not Detect); Influenza B Not Detected (Not Detect); Mycoplasma pneumoniae Not Detected (Not Detect); Parainfluenza Virus 1 Not Detected (Not Detect); Parainfluenza Virus 2 Not Detected (Not Detect); Parainfluenza Virus 3 Not Detected (Not Detect); Parainfluenza Virus 4 Not Detected (Not Detect); Respiratory Syncytial Virus Not Detected (Not Detect); SARS-CoV-2 Not Detected (Not Detect)
[2022-05-24 18:46] LABS: Bacteria,Urine Few per hpf (None-Few); Bilirubin,Urine Negative (Negative); Blood,Urine Negative (Negative); Calcium Oxalate Crystals,Urine Present per hpf; Clarity,Urine Turbid (Clear); Color,Urine Yellow (Yellow); Glucose,Urine (UA) Normal (Normal); Ketones,Urine 20 mg/dL (Negative); Leukocyte Esterase,Urine Negative (Negative); Mucus,Urine Few per lpf (None-Few); Nitrite,Urine Negative (Negative); Protein,Urine 30 mg/dL (Neg-Trace); RBC,Urine 0-3 per hpf (0-3); Specific Gravity,Urine 1.022 (1.010-1.025); Squamous Epithelial Cell,Urine Moderate per hpf (None-Few); WBC,Urine 0-3 per hpf (0-3)
[2022-05-24 19:06] LABS: Basophils % 0.4 %; Eosinophils # 0.1 K/mcL (0.0-0.6); Eosinophils % 1.1 %; Hematocrit 36.5 % (35.3-44.9); Hemoglobin 11.8 g/dL (11.5-15.4); Immature Granulocytes % 0.4 % (0-4); Mean Corpuscular HGB Conc 32.3 g/dL (31.6-35.5); Mean Corpuscular Hemoglobin 28.8 pg (28.0-33.3); Mean Platelet Volume 9.1 fL (9.4-12.4); Monocytes # 0.8 K/mcL (0.0-1.3); Neutrophils # 8.3 K/mcL (1.6-8.9); Platelet Count 288 K/mcL (140-400); Red Cell Distribution Width 13.2 % (11.5-14.5); Segmented Neutrophils % 73.1 %; White Blood Count 11.3 K/mcL (4.3-11.1)
[2022-05-24 19:35] LABS: Alanine Aminotransferase 12 Units/L (7-52); Albumin 3.8 g/dL (3.5-5.7); Albumin/Globulin Ratio 1.4 (1.1-2.2); Alkaline Phosphatase 70 Units/L (34-104); Aspartate Amino Transferase 17 Units/L (13-39); BUN/Creatinine Ratio 10 (6-26); Bilirubin,Total 0.6 mg/dL (0.3-1.0); Blood Urea Nitrogen 6 mg/dL (6-20); Calcium 8.8 mg/dL (8.6-10.3); Carbon Dioxide 24 mEq/L (23-29); Chloride 106 mEq/L (98-107); Globulin 2.8 g/dL (2.4-3.5); Glucose 97 mg/dL (70-105); Lipase < 3 Units/L (11-82); Osmolality,Calculated 282 (280-300); Potassium 4.1 mEq/L (3.5-5.1); Sodium 137 mEq/L (136-145); Total Protein 6.6 g/dL (6.4-8.9); Troponin I < 0.03 ng/mL (< 0.04); eGFR For African Americans > 60 (> 60); eGFR For Non-African Americans > 60 (> 60)
[2022-05-24] MEDS ORDERED: Iopamidol - 370 500 ML MLS IVP ONE (19:54)
[2022-05-24] MEDS ORDERED: cefTRIAXone 1,000 MG in Water for inj. (sterile) 10 ML IVP ONE (21:15)
[2022-05-24] MEDS ORDERED: Azithromycin 500 MG in 0.9 % Sodium Chloride 250 ML IVPB ONE (21:15)
[2022-05-24] MEDS ORDERED: 0.9 % Sodium Chloride 1,000 ML IV ONE (21:16)
[2022-05-24] MEDS ORDERED: Ipratropium/Albuterol Neb 3 ML IH ONE (21:18)
[2022-05-24] MEDS ORDERED: Acetaminophen 325 MG TABLET PO PRN (22:42)
[2022-05-24 23:48] LABS: Amphetamine Screen,Urine Negative ng/mL (Cutoff=1000); Barbiturate Screen,Urine Negative ng/mL (Cutoff=200); Benzodiazepines Screen,Urine Negative ng/mL (Cutoff=200); Cannabinoid Screen,Urine Positive ng/mL (Cutoff = 50); Cocaine Screen,Urine Negative ng/mL (Cutoff= 300); Opiate Screen,Urine Negative ng/mL (Cutoff=300); Phencyclidine Screen,Urine Negative ng/mL (Cutoff=25)
[2022-05-24] MEDS: Ondansetron 4 MG/2 ML VIAL IVP PRN (23:56)
[2022-05-25] MEDS ORDERED: Perflutren Lipid Microsphere 1.3 ML in 0.9 % Sodium Chloride 8.7 ML IVP PRN (01:43)
[2022-05-25 05:48] LABS: Hematocrit 35.2 % (35.3-44.9); Hemoglobin 11.5 g/dL (11.5-15.4); Immature Granulocytes % 0.2 % (0-4); Lymphocytes # 1.1 K/mcL (0.6-4.6); Lymphocytes % 13.5 %; Mean Corpuscular HGB Conc 32.7 g/dL (31.6-35.5); Mean Corpuscular Hemoglobin 28.7 pg (28.0-33.3); Mean Corpuscular Volume 87.8 fL (83.0-100.0); Mean Platelet Volume 9.5 fL (9.4-12.4); Monocytes # 0.3 K/mcL (0.0-1.3); Monocytes % 3.2 %; Platelet Count 258 K/mcL (140-400); Red Blood Count 4.01 M/mcL (3.82-4.97); Red Cell Distribution Width 13.2 % (11.5-14.5); Segmented Neutrophils % 83.1 %; White Blood Count 8.4 K/mcL (4.3-11.1)
[2022-05-25 06:16] LABS: BUN/Creatinine Ratio 15 (6-26); Blood Urea Nitrogen 8 mg/dL (6-20); Calcium 8.4 mg/dL (8.6-10.3); Carbon Dioxide 20 mEq/L (23-29); Chloride 107 mEq/L (98-107); Glucose 121 mg/dL (70-105); Magnesium 2.1 mg/dL (1.6-2.6); Osmolality,Calculated 282 (280-300); Phosphorous 2.6 mg/dL (2.7-4.5); Potassium 4.1 mEq/L (3.5-5.1); Sodium 136 mEq/L (136-145); Troponin I < 0.03 ng/mL (< 0.04); eGFR For African Americans > 60 (> 60); eGFR For Non-African Americans > 60 (> 60)
[2022-05-25] MEDS ORDERED: Albuterol 2.5 MG/3 ML NEBULIZER IH PRN (07:40)
[2022-05-25] MEDS: levoFLOXacin 750 MG/150 ML 750 MG/150 ML BAG IVPB SCH (08:22)
[2022-05-25] MEDS: *HR* Enoxaparin 40 MG/0.4 ML SYRINGE SQ SCH (08:23)
[2022-05-25] MEDS: Ondansetron 4 MG/2 ML VIAL IVP PRN (08:40)
[2022-05-25 09:55] LABS: C-Reactive Protein 107 mg/L (Less than 10)
[2022-05-25] MEDS ORDERED: hydrOXYzine pamoate 25 MG CAPSULE PO PRN (17:36)
[2022-05-25] MEDS: *HR* Buprenorphine HCl 8 MG TAB.SUBL SL SCH (20:24)
[2022-05-25] MEDS ORDERED: Gabapentin 300 MG CAPSULE PO SCH (21:00)
[2022-05-26] MEDS: *HR* Buprenorphine HCl 8 MG TAB.SUBL SL SCH (08:15)
[2022-05-26 08:16] VITALS: TEMP 97.9; O2SAT 96
[2022-05-26] MEDS: levoFLOXacin 750 MG/150 ML 750 MG/150 ML BAG IVPB SCH (08:16)
[2022-05-26] MEDS: Ondansetron 4 MG/2 ML VIAL IVP PRN (08:16)
[2022-05-26] MEDS: *HR* Enoxaparin 40 MG/0.4 ML SYRINGE SQ SCH (08:16)
[2022-05-26] MEDS ORDERED: Gabapentin 300 MG CAPSULE PO SCH (09:00)
[2022-05-26] MEDS ORDERED: predniSONE 20 MG TABLET PO SCH (09:00)
[2022-05-26 12:22] VITALS: BP 103/65; PULSE 64
== END 2022-05-26 13:06 | disposition home or self-care (01) ==
LOC: 2ANU 16:46 → EMEROOARM 16:46 → SUATTDRO 22:18 → 2ANU 05-25 00:15
PROVIDERS: ADMIT Student in an Organized Health Care Education/Training Program; ATTEND Internal Medicine